=== PATIENT | male | born 1950 | race Caucasian/White ===

== ENCOUNTER 2017-07-11 03:11 | Inpatient (IN) | payer MEDICARE, BC ==
--- NOTE | 2017-07-11 03:23 | ER Document Report ---
ED General - General Stated Complaint: BREATHING DIFFICULTY Notes: Patient is a 67-year-old male who presents with complaint of difficulty breathing. Patient had her procedure earlier today. He said he felt great after procedure and had no comp occasions. Tonight he developed some difficulty breathing and wheezing. He is a former smoker. No history of asthma. Leg pain or leg swelling. He does have Fiore catheter in place with some bloody drainage which is expected. Paramedics arrived to suction saturations were in the 80s. They gave him some Medrol as well as breathing treatment. With the breathing treatment he is feeling much better already. No other complaints at this time. He denies abdominal pain. Had recent URI type symptoms but no fevers. Patient does have history of atrial fibrillation. He is on Eliquis but this is being held because of the recent surgery. He does have a pacemaker, defibrillator as well. He is a diabetic and takes insulin for that. His says his blood sugars are generally well controlled. Accu- Chek by the paramedics was in the 100s. - Related Data Allergies/Adverse Reactions: No Known Allergies Allergy (Unverified 07/11/17 06:00) Home Medications: Current Home Medications Apixaban [Eliquis] 5 mg PO DAILY 07/11/17 [History] Calcium Acetate [Calcium Acetate] 2 tab PO AC 07/11/17 [History] Calcium Carbonate [Calcium] 500 mg PO BID 07/11/17 [History] Insulin Glargine,Hum.rec.anlog [Lantus Insulin 100 Unit/1 ml 10 ml] 10 units SQ DAILY 07/11/17 [History] Insulin Lispro [Humalog Insulin (Lispro) 100 unit/mL] 4 units SQ AC MDD Sliding scale 07/11/17 [History] Sodium Bicarbonate 650 mg PO BID 07/11/17 [History] Sotalol HCl [Sotalol] 80 mg PO BID 07/11/17 [History] Past Medical History - Social History Smoking Status: Former Smoker Frequency of alcohol use: None Drug Abuse: None Family History: Reviewed & Not Pertinent Review of Systems - Review of Systems Notes: My Normal Review Basic REVIEW OF SYSTEMS: CONSTITUTIONAL : Denies fever, chills, or sweats. Denies recent illness. EENT: URI type symptoms recently. CARDIOVASCULAR: Denies chest pain. RESPIRATORY: Wheezing and difficulty breathing. GASTROINTESTINAL: Denies abdominal pain. Denies nausea, vomiting, or diarrhea. Denies constipation. Last BM: GENITOURINARY: Fiore catheter in place. Some hematuria. MUSCULOSKELETAL: Denies neck or back pain or joint pain or swelling. SKIN: Denies rash or skin lesions. NEUROLOGICAL: Denies altered mental status or loss of consciousness. Denies headache. Denies weakness or paralysis or loss of use of either side. Denies problems with gait or speech. Denies sensory or motor loss. ALL OTHER SYSTEMS REVIEWED AND NEGATIVE. Physical Exam - Vital signs Vitals: Temp Pulse Resp BP Pulse Ox 98.1 F 80 32 H 135/72 H 87 L 07/11/17 03:11 07/11/17 03:11 07/11/17 03:11 07/11/17 03:11 07/11/17 03:11 - Notes Notes: General Appearance: Well nourished, alert, cooperative, no acute distress, no obvious discomfort. Well appearing. Vitals: reviewed, See vital signs table. Head: no swelling or tenderness to the head Eyes: PERRL, EOMI, Conjuctiva clear Mouth: No decreasd moisture Throat: No tonsillar inflammation, No airway obstruction, No lymphadenopathy Neck: Supple, no neck tenderness, No thyromegaly Lungs: Mild diffuse wheezing, No rales, No rhonci, No accessory muscle use, good air exchange bilaterally. Heart: Normal rate, Regular rythm, No murmur, no rub Abdomen: Normal BS, soft, No rigidity, No abdominal tenderness, No guarding, no rebound, no abdominal masses, no organomegaly Total: Fiore catheter in place. Some blood-tinged urine being expressed from Fiore catheter. Extremities: strength 5/5 in all extremities, good pulses in all extremities, no swelling or tenderness in the extremities, no edema. Skin: warm, dry, appropriate color, no rash Neuro: speech clear, oriented x 3, normal affect, responds appropriately to questions. Course - Re-evaluation Re-evalutation: 07/11/17 03:43 Patient is now finished receiving the initial breathing treatment was given to him by the paramedics. On 6 L of nasal cannula he is 91%. I will place him on BiPAP for short period time while given further breathing treatments and some magnesium. Currently he does have some diffuse wheezing is now better heard now that the breathing treatment is completed; however, he is in no distress, has no tachypnea, has no retractions, and does not show significant increased work of breathing despite his oxygen saturation only being in the low 90s with supplemental oxygen. 07/11/17 06:46 I did see that the patient's creatinine is elevated. I did go and speak with family and is that his baseline creatinine is actually 4.7. The reason why he had the TURP procedures because they thought he had some post obstructive nephropathy. His predictive maintenance technician is Dr. Kip Thrasher. Patient says this is the best his creatinine has been in long time. The main concern now is that he does have the pneumonia with some hypoxemia. The patient and his said they would prefer to stay here as opposed to be transferred. I do suspect that this is purely pneumonia. He has a high white count. He a lot of wheezing and rhonchorous breath sounds on the right which proved greatly with the breathing treatments. I do not suspect PE as the patient symptoms resolve rate with breathing treatments along with and now he is looking much improved in the chest x-ray findings are very consistent with that of pneumonia. I will speak with our hospitalist about patient being admitted. Patient's primary care doctor is Dr. Rice. 07/11/17 07:37 I did speak with Dr. Basilio who agrees to accept the patient for admission. Dictation of this chart was performed using voice recognition software; therefore, there may be some unintended grammatical errors. 07/11/17 07:40 - Vital Signs Vital signs: Temp Pulse Resp BP Pulse Ox 99 F 80 15 132/87 H 96 07/11/17 07:01 07/11/17 03:11 07/11/17 07:01 07/11/17 07:00 07/11/17 07:01 - Laboratory Result Diagrams: 07/11/17 05:40 07/11/17 05:40 Laboratory results interpreted by me: 07/11/17 07/11/17 07/11/17 04:15 05:40 05:40 WBC 17.0 H RBC 3.55 L Hgb 10.4 L Hct 32.7 L MCHC 31.8 L RDW 15.1 H Seg Neuts % (Manual) 94 H Band Neutrophils % 1 L Lymphocytes % (Manual) 4 L Monocytes % (Manual) 1 L Abs Neuts (Manual) 16.2 H VBG pH 7.22 L VBG HCO3 17.6 L Carbon Dioxide 17 L BUN 49 H Creatinine 3.52 H Est GFR ( Amer) 21 L Est GFR (Non-Af Amer) 17 L Glucose 244 H Calcium 7.7 L Total Protein 5.9 L Discharge - Discharge Clinical Impression: Pneumonia Qualifiers: Pneumonia type: due to unspecified organism Laterality: right Lung location: unspecified part of lung Qualified Code(s): J18.9 - Pneumonia, unspecified organism Condition: Stable Disposition: ADMITTED OBSERVATION Admitting Provider: Hospitalist Unit Admitted: Telemetry
[2017-07-11] MEDS ORDERED: ALBUTEROL SULFATE 0.083% NEB 2.5 MG/3 ML AMPUL NEB ONE (03:35)
--- NOTE | 2017-07-11 03:50 | RADIOLOGY REPORT (SQ) ---
EXAM DESCRIPTION: CHEST SINGLE VIEW CLINICAL HISTORY: 67 years, Male, cough COMPARISON: 06.19.18 LIMITATIONS: None. FINDINGS: Mild interstitial markings with septal markings, mild patchiness of the right lower and mid lung szymanski, normal cardiac silhouette, left cardiac stimulation device and leads, and intact bony thorax. IMPRESSION: Mild mixed airspace and interstitial opacities, right more than left may indicate asymmetric pulmonary edema, pneumonia, and/or chronic interstitial lung disease. 2011 [employer]- All Rights Reserved
[2017-07-11] MEDS: MAGNESIUM SULFATE/D5W 1 GM/100 ML RTUPB IV SCH ×2 (03:51→06:53)
[2017-07-11 04:52] LABS: VENOUS BLOOD BASE EXCESS -9.6 mmol/L; VENOUS BLOOD HCO3 17.6 mmol/L (20-32); VENOUS BLOOD PH 7.22 (7.30-7.42)
[2017-07-11 05:57] LABS: HEMATOCRIT 32.7 % (37.9-51.0); HEMOGLOBIN 10.4 g/dL (13.5-17.0); MEAN CORPUSCULAR HEMOGLOBIN 29.3 pg (27.0-33.4); MEAN CORPUSCULAR HGB CONC 31.8 g/dL (32.0-36.0); MEAN CORPUSCULAR VOLUME 92 fl (80-97); PLATELET COUNT 204 10^3/uL (150-450); RED BLOOD COUNT 3.55 10^6/uL (4.35-5.55); RED CELL DISTRIBUTION WIDTH 15.1 % (11.5-14.0)
[2017-07-11 06:11] LABS: ALANINE AMINOTRANSFERASE 61 U/L (21-72); ALBUMIN 3.6 g/dL (3.5-5.0); ALKALINE PHOSPHATASE 101 U/L (38-126); ANION GAP 16 (5-19); ASPARTATE AMINO TRANSFERASE 50 U/L (17-59); BILIRUBIN,DIRECT 0.3 mg/dL (0.0-0.4); BILIRUBIN,TOTAL 0.4 mg/dL (0.2-1.3); BLOOD UREA NITROGEN 49 mg/dL (7-20); CALCIUM 7.7 mg/dL (8.4-10.2); CARBON DIOXIDE 17 mmol/L (22-30); CHLORIDE 107 mmol/L (98-107); GLUCOSE 244 mg/dL (75-110); POTASSIUM 3.7 mmol/L (3.6-5.0); SODIUM 139.6 mmol/L (137-145); TOTAL PROTEIN 5.9 g/dL (6.3-8.2)
[2017-07-11 06:27] LABS: ABSOLUTE LYMPHOCYTES# (MANUAL) 0.7 10^3/uL (0.5-4.7); ABSOLUTE MONOCYTES # (MANUAL) 0.2 10^3/uL (0.1-1.4); ABSOLUTE NEUTROPHILS# (MANUAL) 16.2 10^3/uL (1.7-8.2); BAND NEUTROPHILS % (MANUAL) 1 % (3-5); BASOPHILS % (MANUAL) 0 % (0-2); EOSINOPHILS % (MANUAL) 0 % (0-6); LYMPHOCYTES % (MANUAL) 4 % (13-45); MONOCYTES % (MANUAL) 1 % (3-13); SEGMENTED NEUTROPHILS % (MAN) 94 % (42-78); TOTAL CELLS COUNTED 100
[2017-07-11] MEDS ORDERED: LEVOFLOXACIN 750 MG/D5W RTU 750 MG/150 ML RTUPB IV ONE (06:27)
[2017-07-11 06:29] LABS: ANISOCYTOSIS SLIGHT; OVALOCYTES SLIGHT; PLATELET COMMENT ADEQUATE; POIKILOCYTOSIS SLIGHT; STOMATOCYTES SLIGHT
[2017-07-11 06:30] LABS: TOXIC GRANULATION SLIGHT; TOXIC VACUOLATION PRESENT
[2017-07-11] MEDS ORDERED: IPRATROPIUM/ALBUTEROL 0.5-2.5 MG/3 ML AMPUL NEB PRN (07:41)
[2017-07-11] MEDS ORDERED: ONDANSETRON HCL INJ/PF 4 MG/2 ML SDV IV PRN (07:41)
[2017-07-11] MEDS ORDERED: ONDANSETRON 4 MG TAB.RAPDIS PO PRN (07:41)
[2017-07-11] MEDS ORDERED: LANSOPRAZOLE 15 MG TAB.RAP.DR PO ONE (08:30)
[2017-07-11] MEDS ORDERED: ENOXAPARIN SODIUM INJ 40 MG/0.4 ML DISP.SYRIN SUBCUT SCH (10:00)
[2017-07-11] MEDS ORDERED: ENOXAPARIN SODIUM INJ 30 MG/0.3 ML DISP.SYRIN SUBCUT SCH (10:00)
[2017-07-11] MEDS: DOCUSATE SODIUM 100 MG CAPSULE PO SCH (10:14)
[2017-07-11] MEDS ORDERED: DEXTROSE 50%-WATER 25 GM/50 ML DISP.SYRIN IV PRN ×2 (11:11)
[2017-07-11] MEDS ORDERED: INSULIN LISPRO 100 UNIT/ML 3 ML VIAL SUBCUT PRN (11:11)
[2017-07-11] MEDS ORDERED: GLUCAGON,HUMAN RECOMB 1 MG INJ IM PRN (11:11)
[2017-07-11] MEDS ORDERED: DEXTROSE 40% GEL 15 GM TUBE PO PRN ×2 (11:11)
[2017-07-11] MEDS ORDERED: FUROSEMIDE INJ/PF 20 MG/2 ML SDV IV ONE (12:00)
[2017-07-11] MEDS ORDERED: DOXYCYCLINE HYCLATE 100 MG TABLET PO ONE (12:00)
[2017-07-11] MEDS ORDERED: INSULIN GLARGINE,HUM.REC.ANLOG 1,000 UNIT/10 ML UNIT SUBCUT SCH (12:00)
[2017-07-11] MEDS ORDERED: FUROSEMIDE INJ/PF 40 MG/4 ML SDV IV ONE (13:00)
--- NOTE | 2017-07-11 15:51 | XCELERA REPORT ---
[address] [address] Transthoracic Echocardiogram Report Name: KARINA SHIELDS Age: 67 yrs Gender: Male : 1950 Patient Status: Inpatient Patient Location: [place] [address]^A Study Date: 07/11/2017 12:49 PM Height: 75 in Weight: 191 lb BSA: 2.2 m2 Procedure: A two-dimensional transthoracic echocardiogram with color flow and Doppler was performed. Study Quality: Fair. Reason For Study: Cardiomyopathy LV EF History: Cardiomyopathy LV EF. Ordering Physician: SONIA PACHECO Performed By: Yolanda Collier Interpretation Summary The left ventricle is moderately to severly dilated. There is borderline asymmetric left ventricular hypertrophy. No LVOT obstruction and no 'JOELLEN' of the anterior Mitral Valve Leaflet.Hence no IHSS (No HOCM.). LV EF is 30 % to 35% Left ventricular systolic function is severely reduced. Doppler measurements suggest impaired left ventricular relaxation, which is associated with grade I/IV or mild diastolic dysfunction The left atrium is mildly dilated. There is no evidence of mitral valve prolapse. There is no vegetation seen on the mitral valve. There is no mitral valve stenosis. There is a trace amount of mitral regurgitation There is no aortic valve stenosis There is no LVOT obstruction. No aortic regurgitation is present. There is no tricuspid stenosis. There is a trace amount of tricuspid regurgitation Right ventricular systolic pressure is normal. RVSP is normal at 28 mm of Hg , with RA mean of 10. There is no pericardial effusion. MMode/2D Measurements & Calculations RVDd: 2.7 cm LVIDd: 6.0 cm FS: 17.5 % Ao root diam: IVSd: 1.2 cm LVIDs: 5.0 cm EDV(Teich): 3.3 cm LVPWd: 1.1 cm 183.3 ml Ao root area: ESV(Teich): 117.5 ml 8.7 cm2 EF(Teich): LA dimension: 35.9 % 3.9 cm LVLd ap4: 10.5 cm SV(MOD-sp4): 70.0 ml LA A2Cs: LA A4Cs: 29.6 cm2 EDV(MOD-sp4): 29.5 cm2 223.0 ml LVLs ap4: 9.3 cm ESV(MOD-sp4): 153.0 ml EF(MOD-sp4): 31.4 % LA length: 6.9 cm LA Vol Index (BP): LA Volume: 50.0 ml/m2 107.6 ml Doppler Measurements & Calculations MV E max angelo: MV P1/2t max angelo: Ao V2 max: LV V1 max P.3 cm/sec 54.3 cm/sec 117.3 cm/sec 1.4 mmHg MV A max angelo: MV P1/2t: 48.3 msec Ao max PG: LV V1 max: 76.0 cm/sec 5.5 mmHg 58.2 cm/sec MV E/A: 0.73 MVA(P1/2t): 4.6 cm2 MV dec slope: 329.1 cm/sec2 PA V2 max: TR max angelo: 104.6 cm/sec 211.5 cm/sec PA max PG: TR max P.9 mmHg 4.4 mmHg Left Ventricle The left ventricle is moderately to severly dilated. There is borderline asymmetric left ventricular hypertrophy. No LVOT obstruction and no 'JOELLEN' of the anterior Mitral Valve Leaflet.Hence no IHSS (No HOCM.). LV EF is 30 % to 35%. Left ventricular systolic function is severely reduced. Doppler measurements suggest impaired left ventricular relaxation, which is associated with grade I/IV or mild diastolic dysfunction. There is severe global hypokinesis of the left ventricle. Right Ventricle The right ventricle is normal in size and function. There is a pacemaker lead in the right ventricle. Atria The right atrium is normal. The left atrium is mildly dilated. Mitral Valve There is no evidence of mitral valve prolapse. There is no vegetation seen on the mitral valve. There is no mitral valve stenosis. There is a trace amount of mitral regurgitation. Aortic Valve There is no aortic valvular vegetation. There is no aortic valve stenosis. There is no LVOT obstruction. No aortic regurgitation is present. Tricuspid Valve There is no tricuspid stenosis. There is a trace amount of tricuspid regurgitation. Right ventricular systolic pressure is normal. RVSP is normal at 28 mm of Hg , with RA mean of 10. Pulmonic Valve There is no pulmonic valvular stenosis. There is no pulmonic valvular regurgitation. Great Vessels The aortic root is normal size. Effusions There is no pericardial effusion. : JUNIOR, NOVEMBER > Sharla Nichols
[2017-07-11] MEDS: IPRATROPIUM/ALBUTEROL 0.5-2.5 MG/3 ML AMPUL NEB SCH ×2 (16:36→20:13)
--- NOTE | 2017-07-11 17:18 | PDOC H&P ---
History of Present Illness Admission Date/PCP: 07/11/17 09:40 Dr. Es Rice [facility] Marketing Senior Recruiter: Dr. Laura Lynn Urologist: Doctor Constantino Christopher in [facility] Weapons Specialist: Dr.Vernon Thrasher History of Present Illness: KARINA SHIELDS is a 67 year old male with past medical history of Atrial fibrillation on Sotalol and Eliquis Chronic kidney disease Postobstructive nephropathy Insulin-dependent diabetes Cardiomyopathy with left ventricular ejection fraction of 35% on last echocardiogram from 2011 AICD Patient medications: Sotalol 80 mg twice a day Eliquis 5 mg twice a day on hold for the next 3 days due to TURP done on very fourth at [facility] Sodium bicarbonate 650 mg twice a day Calcium acetate 667 mg 2 caps 3 times a day with meals Calcium and vitamin D twice a day Lantus 10 units daily in the morning Insulin sliding scale 1 unit for every 15 g of carbs Humalog COPD Prior tobacco use. The patient presented with a two-week history of progressively worsening orthopnea and dry cough with yellowish phlegm. He also had some rhinorrhea and sore throat. He denies any fevers or chills. No nausea or vomiting no diarrhea no abdominal pain. No chest pain or palpitations. He underwent TURP at [facility] and still has a Fiore in place. Eliquis is on hold. He became acutely more short of breath yesterday and presented to the emergency room and is found to have acute hypoxic respiratory failure and was treated with BiPAP magnesium and nebs. X-ray showed a right basal infiltrate and he was started on antibiotics. Past Medical History Cardiac Medical History: Reports: Atrial Fibrillation Endocrine Medical History: Reports: Diabetes Mellitus Type 2 Musculoskeltal Medical History: Reports: Arthritis Past Surgical History Past Surgical History: Comment Only: Vascular Surgery - TURP 07/10/17 Social History Smoking Status: Former Smoker Drugs: None - Advance Directive Resuscitation Status: Full Code Family History Family History: Reviewed & Not Pertinent Parental Family History Reviewed: Yes Children Family History Reviewed: Yes Sibling(s) Family History Reviewed.: Yes Medication/Allergy Home Medications: Apixaban [Eliquis 5 mg Tablet] 5 mg PO Q12 07/11/17 Calcium Acetate [Phoslo 667 mg Capsule] 667 mg PO MEALS 07/11/17 Finasteride [Proscar 5 mg Tablet] 5 mg PO DAILY 07/11/17 Insulin Glargine,Hum.rec.anlog [Lantus Solostar] 10 units SQ DAILY 07/11/17 Insulin Lispro [Humalog Insulin (Lispro) 100 unit/mL] 0 units SQ .SLIDING SCALE 07/11/17 Sodium Bicarbonate [Sodium Bicarbonate 650 mg Tablet] 650 mg PO BID 07/11/17 Allergies/Adverse Reactions: No Known Allergies Allergy (Unverified 07/11/17 06:00) Review of Systems All systems: reviewed and no additional remarkable complaints except as stated Constitutional: ABSENT: anorexia, chills, fever(s), headache(s) Ears: ABSENT: hearing changes Nose, Mouth, and Throat: ABSENT: mouth pain Cardiovascular: PRESENT: dyspnea on exertion, orthropnea. ABSENT: chest pain, edema Gastrointestinal: ABSENT: abdominal pain, diarrhea, heartburn Integumentary: ABSENT: rash Neurological: ABSENT: focal weakness Psychiatric: ABSENT: anxiety Endocrine: ABSENT: heat intolerance Physical Exam Vital Signs: Temp Pulse Resp BP Pulse Ox 99 F 80 15 125/85 100 07/11/17 07:01 07/11/17 03:11 07/11/17 13:01 07/11/17 13:00 07/11/17 13:01 Intake & Output 07/10/17 07/11/17 07/12/17 06:59 06:59 06:59 Output Total 950 Balance -950 Additional comments: Lace gentleman sitting in bed not in acute distress Lungs: Normal respiratory effort positive crackles in the right base no wheezing heard Cardiac: S1-S2 regular no peripheral edema no cyanosis no calf tenderness no thrills palpable no murmurs heard Abdomen: Soft, no focal tenderness normal bowel sounds Skin: Warm and dry Fiore present draining blood-tinged urine Neurologic: Awake and alert oriented 3 no focal neurologic deficits speech is clear and fluent. Results Impressions: Chest X-Ray 07/11/17 03:19 IMPRESSION: Mild mixed airspace and interstitial opacities, right more than left may indicate asymmetric pulmonary edema, pneumonia, and/or chronic interstitial lung disease. 2010 [employer]- All Rights Reserved Status: Image reviewed by me Assessment & Plan - Diagnosis (1) Right lower lobe pneumonia Is this a current diagnosis for this admission?: Yes (2) Atrial fibrillation Is this a current diagnosis for this admission?: Yes (3) Anticoagulant long-term use Is this a current diagnosis for this admission?: No (4) AICD (automatic cardioverter/defibrillator) present Is this a current diagnosis for this admission?: Yes (5) COPD exacerbation Is this a current diagnosis for this admission?: Yes (6) CKD (chronic kidney disease) stage 3, GFR 30-59 ml/min Is this a current diagnosis for this admission?: Yes (7) Diabetes 1.5, managed as type 2 Is this a current diagnosis for this admission?: Yes (8) Acute systolic (congestive) heart failure Is this a current diagnosis for this admission?: Yes - Time Time Spent: 50 to 70 Minutes - Plan Summary Plan Summary: Nebs, Oxygen antibiotics, Lasix, monitor Input and output. Continue Sotalol, Eliquis on hold due to recent TURP. Patient insists that he will check his own blood sugars and absolutely take all his own home medications. This is ok with me.
[2017-07-11] MEDS ORDERED: (PENDING PHARMACY ID) (Calcium Carbonate [Calcium] 500 MG) PO SCH (18:00)
[2017-07-11] MEDS ORDERED: FUROSEMIDE 40 MG TABLET PO SCH (18:00)
[2017-07-11] MEDS: SODIUM BICARBONATE 650 MG TABLET PO SCH (20:10)
[2017-07-11] MEDS: CALCIUM ACETATE 667 MG CAPSULE PO SCH (20:10)
[2017-07-11] MEDS: SOTALOL HCL 80 MG TABLET PO SCH (20:10)
[2017-07-11] MEDS: CALCIUM CARBONATE 500 MG TABLET PO SCH (20:10)
[2017-07-11] MEDS: DOXYCYCLINE HYCLATE 100 MG TABLET PO SCH (21:38)
[2017-07-12] MEDS: IPRATROPIUM/ALBUTEROL 0.5-2.5 MG/3 ML AMPUL NEB SCH ×6 (00:07→20:24)
[2017-07-12] MEDS: LANSOPRAZOLE 15 MG TAB.RAP.DR PO SCH (05:41)
[2017-07-12] MEDS: SOTALOL HCL 80 MG TABLET PO SCH ×2 (05:43→17:10)
[2017-07-12 07:41] LABS: ANION GAP 12 (5-19); BLOOD UREA NITROGEN 66 mg/dL (7-20); CALCIUM 8.2 mg/dL (8.4-10.2); CARBON DIOXIDE 21 mmol/L (22-30); CHLORIDE 105 mmol/L (98-107); GLUCOSE 219 mg/dL (75-110); MAGNESIUM 1.9 mg/dL (1.6-2.3); PHOSPHORUS 5.2 mg/dL (2.5-4.5); POTASSIUM 3.9 mmol/L (3.6-5.0); SODIUM 138.1 mmol/L (137-145)
[2017-07-12] MEDS: CALCIUM CARBONATE 500 MG TABLET PO SCH ×2 (10:25→17:10)
[2017-07-12] MEDS: DOCUSATE SODIUM 100 MG CAPSULE PO SCH (10:25)
[2017-07-12] MEDS: LACTOBACILLUS ACIDOPHILUS 250 MG TAB PO SCH ×2 (10:25→17:10)
[2017-07-12] MEDS: CALCIUM ACETATE 667 MG CAPSULE PO SCH ×3 (10:25→17:10)
[2017-07-12] MEDS: SODIUM BICARBONATE 650 MG TABLET PO SCH ×2 (10:25→17:10)
[2017-07-12] MEDS: DOXYCYCLINE HYCLATE 100 MG TABLET PO SCH ×2 (10:32→21:51)
--- NOTE | 2017-07-12 11:33 | EKG REPORT ---
SEVERITY:- ABNORMAL ECG - ATRIAL-PACED COMPLEXES LEFT BUNDLE BRANCH BLOCK : Confirmed by: Linnette Hinkle 12-Jul-2017 11:32:40
[2017-07-12] MEDS: INSULIN GLARGINE,HUM.REC.ANLOG 1,000 UNIT/10 ML UNIT SUBCUT SCH (12:08)
--- NOTE | 2017-07-12 15:54 | PDOC PROGRESS REPORT ---
Subjective Progress Note for:: 07/12/17 Subjective:: Feels better today. Reason For Visit: PNEUMONIA HYPOXIA Physical Exam Vital Signs: Temp Pulse Resp BP Pulse Ox 97.9 F 74 16 132/82 H 98 07/12/17 04:29 07/12/17 13:35 07/12/17 13:35 07/12/17 04:29 07/12/17 09:01 Additional comments: Middle aged gentleman sitting in bed not in acute distress Lungs: Normal respiratory effort, b/l basal crackles, no wheezing heard Cardiac: S1-S2 regular no peripheral edema no cyanosis no calf tenderness no thrills palpable no murmurs heard Abdomen: Soft, no focal tenderness normal bowel sounds Skin: Warm and dry Fiore present draining blood-tinged urine Results Impressions: Chest X-Ray 07/11/17 03:19 IMPRESSION: Mild mixed airspace and interstitial opacities, right more than left may indicate asymmetric pulmonary edema, pneumonia, and/or chronic interstitial lung disease. 2010 [employer]- All Rights Reserved Assessment & Plan - Diagnosis (1) Right lower lobe pneumonia Is this a current diagnosis for this admission?: Yes (2) Atrial fibrillation Is this a current diagnosis for this admission?: Yes (3) Anticoagulant long-term use Is this a current diagnosis for this admission?: No (4) AICD (automatic cardioverter/defibrillator) present Is this a current diagnosis for this admission?: Yes (5) COPD exacerbation Is this a current diagnosis for this admission?: Yes (6) CKD (chronic kidney disease) stage 3, GFR 30-59 ml/min Is this a current diagnosis for this admission?: Yes (7) Diabetes 1.5, managed as type 2 Is this a current diagnosis for this admission?: Yes (8) Acute systolic (congestive) heart failure Is this a current diagnosis for this admission?: Yes - Time Time Spent with patient: 25-34 minutes - Inpatient Certification Medical Necessity: Need Close Monitoring Due to Risk of Patient Decompensation, Need for Nebulizer Therapy and Monitoring of Response - Plan Summary Plan Summary: Continue IV LasixNebs, Oxygen antibiotics, monitor Input and output for Pneumonia R lower lobe and acute systolic CHF exacerbation. Continue Sotalol for Afib Eliquis on hold due to recent TURP.
[2017-07-13] MEDS: IPRATROPIUM/ALBUTEROL 0.5-2.5 MG/3 ML AMPUL NEB SCH ×7 (00:40→23:41)
[2017-07-13] MEDS: SOTALOL HCL 80 MG TABLET PO SCH ×2 (05:35→17:50)
[2017-07-13] MEDS: LANSOPRAZOLE 15 MG TAB.RAP.DR PO SCH (05:35)
[2017-07-13 09:48] LABS: ANION GAP 13 (5-19); BLOOD UREA NITROGEN 68 mg/dL (7-20); CALCIUM 8.1 mg/dL (8.4-10.2); CARBON DIOXIDE 23 mmol/L (22-30); CHLORIDE 104 mmol/L (98-107); GLUCOSE 302 mg/dL (75-110); MAGNESIUM 1.7 mg/dL (1.6-2.3); POTASSIUM 3.7 mmol/L (3.6-5.0); SODIUM 140.3 mmol/L (137-145)
[2017-07-13] MEDS: DOCUSATE SODIUM 100 MG CAPSULE PO SCH (10:32)
[2017-07-13] MEDS: INSULIN GLARGINE,HUM.REC.ANLOG 1,000 UNIT/10 ML UNIT SUBCUT SCH (10:32)
[2017-07-13] MEDS: CALCIUM ACETATE 667 MG CAPSULE PO SCH ×3 (10:32→17:50)
[2017-07-13] MEDS: SODIUM BICARBONATE 650 MG TABLET PO SCH ×2 (10:32→17:50)
[2017-07-13] MEDS: DOXYCYCLINE HYCLATE 100 MG TABLET PO SCH ×2 (10:32→21:19)
[2017-07-13] MEDS: CALCIUM CARBONATE 500 MG TABLET PO SCH ×2 (10:32→17:50)
[2017-07-13] MEDS: LACTOBACILLUS ACIDOPHILUS 250 MG TAB PO SCH ×2 (10:33→17:50)
--- NOTE | 2017-07-13 20:28 | PROGRESS NOTE E ---
Progress Note NAME: KARINA SHIELDS : 1950 AGE: 67Y DATE: 07/13/2017 ROOM: 416 SUBJECTIVE: The patient is a 67-year-old male with a history of atrial fibrillation. Anticoagulation is on hold because he had TURP procedure done a few days ago. He came in with shortness of breath and acute hypoxic respiratory failure and was diagnosed with right lower lobe pneumonia. He is feeling somewhat better. OBJECTIVE: VITAL SIGNS: Stable. LUNGS: He has right sided crackles. No wheezing heard. Normal respiratory effort. CARDIAC: S1, S2 regular. No murmurs heard. No peripheral edema. No cyanosis. ABDOMEN: Soft. No focal tenderness. Normal bowel sounds. SKIN: Warm and dry. PLAN: 1. Continue antibiotics, neb treatments, supplemental oxygen. 2. Continue outpatient medications for atrial fibrillation, including Sotalol. 3. Continue NovoLog and Lantus for diabetes. TIME SPENT: Twenty-five minutes. DICTATING PHYSICIAN: SONIA PACHECO M.D. [id number] PHY#: [id number] ID: [id number] JOB#: [id number] ACCT: [id number] cc: >
[2017-07-14] MEDS: IPRATROPIUM/ALBUTEROL 0.5-2.5 MG/3 ML AMPUL NEB SCH ×3 (04:08→11:30)
[2017-07-14] MEDS: LANSOPRAZOLE 15 MG TAB.RAP.DR PO SCH (06:02)
[2017-07-14] MEDS: SOTALOL HCL 80 MG TABLET PO SCH (06:03)
[2017-07-14 08:54] LABS: ANION GAP 11 (5-19); BLOOD UREA NITROGEN 66 mg/dL (7-20); CALCIUM 7.6 mg/dL (8.4-10.2); CARBON DIOXIDE 24 mmol/L (22-30); CHLORIDE 104 mmol/L (98-107); GLUCOSE 221 mg/dL (75-110); MAGNESIUM 1.6 mg/dL (1.6-2.3); POTASSIUM 3.6 mmol/L (3.6-5.0); SODIUM 138.7 mmol/L (137-145)
[2017-07-14] MEDS: LACTOBACILLUS ACIDOPHILUS 250 MG TAB PO SCH (09:16)
[2017-07-14] MEDS: DOXYCYCLINE HYCLATE 100 MG TABLET PO SCH (09:16)
[2017-07-14] MEDS: CALCIUM ACETATE 667 MG CAPSULE PO SCH ×2 (09:21→10:17)
[2017-07-14] MEDS: SODIUM BICARBONATE 650 MG TABLET PO SCH (09:21)
[2017-07-14] MEDS: CALCIUM CARBONATE 500 MG TABLET PO SCH (09:21)
[2017-07-14] MEDS: DOCUSATE SODIUM 100 MG CAPSULE PO SCH (09:21)
[2017-07-14] MEDS: INSULIN GLARGINE,HUM.REC.ANLOG 1,000 UNIT/10 ML UNIT SUBCUT SCH (12:16)
[2017-07-14] MEDS: MAGNESIUM SULFATE/D5W 1 GM/100 ML RTUPB IV SCH ×2 (12:16→13:10)
[2017-07-14 15:08] VITALS: BP 135/75
--- NOTE | 2017-07-14 16:22 | PDOC DISCHARGE SUMMARY ---
General - Admit/Disc Date/PCP Admission Date/Primary Care Provider: 07/12/17 14:37 Discharge Date: 07/14/17 - Discharge Diagnosis (1) Right lower lobe pneumonia Is this a current diagnosis for this admission?: Yes (2) Atrial fibrillation Is this a current diagnosis for this admission?: Yes (3) Anticoagulant long-term use Is this a current diagnosis for this admission?: No (4) AICD (automatic cardioverter/defibrillator) present Is this a current diagnosis for this admission?: Yes (5) COPD exacerbation Is this a current diagnosis for this admission?: Yes (6) CKD (chronic kidney disease) stage 3, GFR 30-59 ml/min Is this a current diagnosis for this admission?: Yes (7) Diabetes 1.5, managed as type 2 Is this a current diagnosis for this admission?: Yes (8) Acute systolic (congestive) heart failure Is this a current diagnosis for this admission?: Yes - Additional Information Resuscitation Status: Full Code Discharge Diet: Diabetic Discharge Activity: Activity As Tolerated Prescriptions: Doxycycline Hyclate [Vibramycin 100 mg Tablet] 100 mg PO Q12 5 Days #11 tablet Home Medications: Calcium Acetate [Phoslo 667 mg Capsule] 667 mg PO MEALS 07/11/17 Finasteride [Proscar 5 mg Tablet] 5 mg PO DAILY 07/11/17 Insulin Glargine,Hum.rec.anlog [Lantus Solostar] 10 units SQ DAILY 07/11/17 Insulin Lispro [Humalog Insulin (Lispro) 100 unit/mL] 0 units SQ .SLIDING SCALE 07/11/17 Sodium Bicarbonate [Sodium Bicarbonate 650 mg Tablet] 650 mg PO BID 07/11/17 Calcium Acetate [Phoslo 667 mg Capsule] 667 mg PO AC capsule 07/14/17 Calcium Carbonate [Os-Raghav 500 mg Tablet (Oyster-Shell)] 500 mg PO BID tablet Doxycycline Hyclate [Vibramycin 100 mg Tablet] 100 mg PO Q12 5 Days #11 tablet 07/14/17 Insulin Glargine,Hum.rec.anlog [Lantus Insulin 100 Unit/1 ml 10 ml] 10 unit SUBCUT DAILY@1200 unit 07/14/17 Sodium Bicarbonate [Sodium Bicarbonate 650 mg Tablet] 650 mg PO BID tablet 02/21 Sotalol HCl [Betapace 80 mg Tablet] 80 mg PO Q12A tablet 07/14/17 History of Present Illness History of Present Illness: KARINA SHIELDS is a 67 year old male with past medical history of Atrial fibrillation on Sotalol and Eliquis Chronic kidney disease Postobstructive nephropathy Insulin-dependent diabetes Cardiomyopathy with left ventricular ejection fraction of 35% on last echocardiogram from 2011 AICD Patient medications: Sotalol 80 mg twice a day Eliquis 5 mg twice a day on hold for the next 3 days due to TURP done on very fourth at [facility] Sodium bicarbonate 650 mg twice a day Calcium acetate 667 mg 2 caps 3 times a day with meals Calcium and vitamin D twice a day Lantus 10 units daily in the morning Insulin sliding scale 1 unit for every 15 g of carbs Humalog COPD Prior tobacco use. The patient presented with a two-week history of progressively worsening orthopnea and dry cough with yellowish phlegm. He also had some rhinorrhea and sore throat. He denies any fevers or chills. No nausea or vomiting no diarrhea no abdominal pain. No chest pain or palpitations. He underwent TURP at [facility] and still has a Fiore in place. Eliquis is on hold. He became acutely more short of breath yesterday and presented to the emergency room and is found to have acute hypoxic respiratory failure and was treated with BiPAP magnesium and nebs. X-ray showed a right basal infiltrate and he was started on antibiotics. He progressively improved and was weaned off oxygen. He ambulated in the hallways on RA and was satting in the high 90s. The patient is stable and ok for discharge home today. He is to follow up with his Boxing Instructor, PCP and Urologist in 1 week. Hospital Course Hospital Course: see above Physical Exam Vital Signs: Temp Pulse Resp BP Pulse Ox 97.8 F 70 16 135/75 H 100 07/14/17 15:05 07/14/17 15:05 07/14/17 15:05 07/14/17 15:05 07/14/17 15:05 Intake & Output 07/13/17 07/14/17 07/15/17 06:59 06:59 06:59 Intake Total 1344 720 Output Total 7673 3150 1700 Balance -2500 -1806 -980 Weight 78.6 kg 78 kg Throat exam: ABSENT: post pharyngeal erythema, tonsillar exudate Respiratory exam: PRESENT: other - trace bibasilar crackles. ABSENT: accessory muscle use Cardiovascular exam: PRESENT: RRR Results Laboratory Results: 07/13/17 19:00 07/13/17 07/13/17 19:00 19:00 Sodium 138.7 Potassium 3.6 Chloride 104 Carbon Dioxide 24 Anion Gap 11 BUN 66 H Creatinine 3.92 H Est GFR ( Amer) 19 L Est GFR (Non-Af Amer) 15 L Glucose 221 H Calcium 7.6 L Phosphorus 5.0 H Magnesium 1.6 TSH 1.68 07/13/17 08:58 NT-Pro-B Natriuret Pep 73618 H Impressions: Chest X-Ray 07/11/17 03:19 IMPRESSION: Mild mixed airspace and interstitial opacities, right more than left may indicate asymmetric pulmonary edema, pneumonia, and/or chronic interstitial lung disease. 2010 [employer]- All Rights Reserved Status: Image reviewed by me Qualifiers PATEINT BEING DISCHARGED WITH ANY OF THE FOLLOWING DIAGNOSIS?: No Plan Time Spent: Greater than 30 Minutes - Discharge home
== END 2017-07-14 15:53 | disposition home or self-care (01) | DRG 193 ==
LOC: ER 03:11 → EH 09:40 → 4W 14:42 → OBSVTOIN 07-12 14:37
PROVIDERS: ADMIT Internal Medicine; ATTEND Internal Medicine
DX: J18.9 Pneumonia, unspecified organism (principal); J96.01 Acute respiratory failure with hypoxia; I50.21 Acute systolic (congestive) heart failure; I42.9 Cardiomyopathy, unspecified; J44.0 Chronic obstructive pulmonary disease with (acute) lower respiratory infection; J44.1 Chronic obstructive pulmonary disease with (acute) exacerbation; I48.2 Chronic atrial fibrillation; N18.3 Chronic kidney disease, stage 3 (moderate); E11.22 Type 2 diabetes mellitus with diabetic chronic kidney disease; Z95.810 Presence of automatic (implantable) cardiac defibrillator; Z87.891 Personal history of nicotine dependence; Z79.01 Long term (current) use of anticoagulants; Z79.4 Long term (current) use of insulin; Z79.899 Other long term (current) drug therapy
CPT/HCPCS: 36415; 71045; 80048; 80053; 82803; 82962; 83036; 83735; 83880; 84100; 84443; 85025; 87040; 93005; 93010; 93306; 94640; 94660; 96365; 96367; 96372; 96375; 99285; G0378; J1650; J1815; J1940; J1956; J3475; J3490; J7620

== ENCOUNTER 2018-01-21 04:01 | Inpatient (IN) | payer MEDICARE, BC ==
--- NOTE | 2018-01-21 04:12 | ER Document Report ---
ED General - General Stated Complaint: HEART PROBLEMS Time Seen by Provider: 01/21/18 04:10 Notes: Patient is a 67-year-old male presents with complaint of difficulty breathing that started at 2:30 AM. He said yesterday during the day he felt completely fine he woke up around 2:30 am feeling very short of breath. Patient has a history of congestive heart failure. He does have pacemaker. He is a former smoker but has not smoked in several years. Paramedics arrived his O2 sats were in the low 80s. He denies ever having any chest pain or chest pressure. Paramedics gave him a dose of Vasotec as he was hypertensive. The placement CPAP. He says he feels much improved after being placed on the CPAP. Paramedics said on initial examination had a lot of rales throughout his lung szymanski. Of note the paramedics on the monitor his heart rate would go from the 60s and 70s down to the 30s and go right back up. He does have a pacemaker. Whenever his heart rate would drop on the monitor he still had a palpable pulse that was in the 50s and 60s; therfore, the monitor likely was just not capturing his rhythm appropriately. His mental health director is Dr. Laura Lynn in [place]. TRAVEL OUTSIDE OF THE [place] IN LAST 30 DAYS: No - Related Data Allergies/Adverse Reactions: No Known Allergies Allergy (Unverified 07/11/17 06:00) Past Medical History - Social History Smoking Status: Former Smoker Frequency of alcohol use: None Drug Abuse: None Family History: Reviewed & Not Pertinent - Past Medical History Cardiac Medical History: Reports: Hx Atrial Fibrillation Endocrine Medical History: Reports: Hx Diabetes Mellitus Type 2 Renal/ Medical History: Reports: Hx Benign Prostatic Hyperplasia - TURP . Denies: Hx Peritoneal Dialysis Musculoskeletal Medical History: Reports Hx Arthritis Past Surgical History: Comment Only: Hx Vascular Surgery - TURP 07/10/17 Review of Systems - Review of Systems Notes: My Normal Review Basic REVIEW OF SYSTEMS: CONSTITUTIONAL : Denies fever, chills, or sweats. Denies recent illness. EENT: Denies eye, ear, throat, or mouth pain or symptoms. Denies nasal or sinus congestion. CARDIOVASCULAR: Denies chest pain. RESPIRATORY: Difficulty breathing. GASTROINTESTINAL: Denies abdominal pain. Denies nausea, vomiting, or diarrhea. GENITOURINARY: Denies difficulty urinating, painful urination, burning, frequency, or blood in urine. MUSCULOSKELETAL: Denies neck or back pain or joint pain or swelling. SKIN: Denies rash or skin lesions. NEUROLOGICAL: Denies altered mental status or loss of consciousness. Denies headache. Denies weakness or paralysis or loss of use of either side. Denies problems with gait or speech. Denies sensory or motor loss. ALL OTHER SYSTEMS REVIEWED AND NEGATIVE. Physical Exam - Vital signs Vitals: Resp BP Pulse Ox 23 H 159/100 H 96 01/21/18 04:04 01/21/18 04:04 01/21/18 04:04 - Notes Notes: General Appearance: Well nourished, alert, cooperative, mild acute distress, no obvious discomfort. Vitals: reviewed, See vital signs table. Head: no swelling or tenderness to the head Eyes: PERRL, EOMI, Conjuctiva clear Mouth: No decreasd moisture Lungs: No wheezing, scattered basilar rales, No rhonci, mild accessory muscle use, good air exchange bilaterally. Heart: Normal rate, Regular rythm, No murmur, no rub Abdomen: Normal BS, soft, No rigidity, No abdominal tenderness, No guarding, no rebound, no abdominal masses, no organomegaly Extremities: strength 5/5 in all extremities, good pulses in all extremities, no swelling or tenderness in the extremities, no edema. Skin: warm, dry, appropriate color, no rash Neuro: speech clear, oriented x 3, normal affect, responds appropriately to questions. Course - Re-evaluation Re-evalutation: 01/21/18 05:05 Patient's breathing has improved significantly. The patient looks very well. The patient does not have any difficulty breathing at this time as long as he is on the BiPAP. Chest x-ray does show some mild pulmonary vascular congestion. Likely the CPAP that was used by the paramedics and the nitro given to resolve most of her flash pulmonary edema. History is consistent with flash pulmonary edema and that is done suddenly, he was hypertensive, he had rales in his lung szymanski, and his symptoms improved with nitro and CPAP. He currently does not have chest pain. He denies having any chest pain throughout the night tonight. Patient does have chronic renal insufficiency and his serum creatinine is usually around 4. Tonight is 4.99. I therefore been given Lasix at the patient's pulmonary edema seems to have improved and I do not want to worsen his renal function. I spoke with the hospitalist, Dr. Castñaeda, took down the patient's information. She said that she may or may not be able to admit the patient tonight but she will pass on the information to morning team if the patient was not able to be admitted by her tonight. Dictation of this chart was performed using voice recognition software; therefore, there may be some unintended grammatical errors. - Vital Signs Vital signs: Temp Pulse Resp BP Pulse Ox 28 H 126/82 H 98 01/21/18 04:48 01/21/18 04:41 01/21/18 04:48 - Laboratory Result Diagrams: 01/21/18 04:00 01/21/18 04:00 Laboratory results interpreted by me: 01/21/18 01/21/18 01/21/18 04:00 04:00 04:00 WBC 12.3 H RBC 3.82 L Hgb 11.3 L Hct 34.9 L RDW 17.8 H Absolute Neutrophils 8.7 H Sodium 149.2 H Chloride 116 H Carbon Dioxide 18 L BUN 66 H Creatinine 4.99 H Est GFR ( Amer) 14 L Est GFR (Non-Af Amer) 12 L Glucose 148 H Calcium 7.8 L NT-Pro-B Natriuret Pep [id number] H - EKG Interpretation by Me Additional EKG results interpreted by me: 01/21/18 04:11 EKG is reviewed and interpreted by me. EKG shows sinus rhythm with a rate of 72 bpm. He has occasional PVCs. Rhythm is paced. CO interval is within normal range. QRS duration is prolonged. QTc interval is normal. She has some minimal ST segment depression in leads V5 and V6 which is unchanged comparison to his previous EKG from July 12, 2017. 01/21/18 04:12 Discharge - Discharge Clinical Impression: Flash pulmonary edema Chronic renal failure Qualifiers: Chronic kidney disease stage: unspecified stage Qualified Code(s): N18.9 - Chronic kidney disease, unspecified Condition: Stable Admitting Provider: Hospitalist Unit Admitted: [facility]
[2018-01-21 04:30] LABS: ABSOLUTE BASOPHILS # (AUTO) 0.2 10^3/uL (0.0-0.2); ABSOLUTE EOSINOPHILS # (AUTO) 0.4 10^3/uL (0.0-0.6); ABSOLUTE LYMPHOCYTES (AUTO) 2.4 10^3/uL (0.5-4.7); ABSOLUTE MONOCYTES (AUTO) 0.6 10^3/uL (0.1-1.4); ABSOLUTE NEUT (AUTO) 8.7 10^3/uL (1.7-8.2); BASOPHILS % (AUTO) 1.3 % (0-2); EOSINOPHILS % (AUTO) 3.4 % (0-6); HEMATOCRIT 34.9 % (37.9-51.0); HEMOGLOBIN 11.3 g/dL (13.5-17.0); LYMPHOCYTES % (AUTO) 19.9 % (13-45); MEAN CORPUSCULAR HEMOGLOBIN 29.4 pg (27.0-33.4); MEAN CORPUSCULAR HGB CONC 32.3 g/dL (32.0-36.0); MEAN CORPUSCULAR VOLUME 91 fl (80-97); MONOCYTES % (AUTO) 4.5 % (3-13); PLATELET COUNT 200 10^3/uL (150-450); RED BLOOD COUNT 3.82 10^6/uL (4.35-5.55); RED CELL DISTRIBUTION WIDTH 17.8 % (11.5-14.0); SEGMENTED NEUTROPHILS % (AUTO) 70.9 % (42-78); TOTAL CELLS COUNTED % (AUTO) 100 %; WHITE BLOOD COUNT 12.3 10^3/uL (4.0-10.5)
[2018-01-21 04:32] LABS: ALANINE AMINOTRANSFERASE 61 U/L (21-72); ALBUMIN 4.2 g/dL (3.5-5.0); ALKALINE PHOSPHATASE 83 U/L (38-126); ANION GAP 15 (5-19); ASPARTATE AMINO TRANSFERASE 55 U/L (17-59); BILIRUBIN,DIRECT 0.4 mg/dL (0.0-0.4); BILIRUBIN,TOTAL 0.4 mg/dL (0.2-1.3); BLOOD UREA NITROGEN 66 mg/dL (7-20); CALCIUM 7.8 mg/dL (8.4-10.2); CARBON DIOXIDE 18 mmol/L (22-30); CHLORIDE 116 mmol/L (98-107); GLUCOSE 148 mg/dL (75-110); POTASSIUM 3.9 mmol/L (3.6-5.0); SODIUM 149.2 mmol/L (137-145); TOTAL PROTEIN 7.2 g/dL (6.3-8.2)
--- NOTE | 2018-01-21 04:40 | RADIOLOGY REPORT (SQ) ---
Chest single view on 01/21/2018 at 4:27 AM CLINICAL INDICATION: Short of breath COMPARISON: None FINDINGS: 2-lead left subclavian AICD device is noted in place. Mild increased reticular interstitial changes may be chronic in nature but cannot exclude mild edema. Correlation with an old exam or short-term follow-up will be useful. Cardiac, hilar and mediastinal contours are within normal limits. No bony abnormality is noted. IMPRESSION: Mild increased interstitial changes may be chronic in nature but cannot exclude mild edema.
[2018-01-21 04:50] LABS: TROPONIN I 0.054 ng/mL
[2018-01-21] MEDS ORDERED: FUROSEMIDE INJ/PF 20 MG/2 ML SDV IV ONE (06:28)
[2018-01-21] MEDS ORDERED: NITROGLYCERIN 10 MG (0.4 MG/HR) PATCH.TD24 TD ONE (06:29)
[2018-01-21] MEDS ORDERED: GLUCAGON,HUMAN RECOMB 1 MG INJ IM PRN (06:55)
[2018-01-21] MEDS ORDERED: DEXTROSE 40% GEL 15 GM TUBE PO PRN ×2 (06:55)
[2018-01-21] MEDS ORDERED: DEXTROSE 50%-WATER 25 GM/50 ML DISP.SYRIN IV PRN ×2 (06:55)
--- NOTE | 2018-01-21 06:55 | PDOC H&P ---
History of Present Illness Admission Date/PCP: 01/21/2018 DEIDRE FELDMAN MD Patient complains of: Shortness of breath History of Present Illness: KARINA SHIELDS is a 67 year old male presents with complaint of difficulty breathing that started at 2:30 AM. He said yesterday during the day he felt completely fine he woke up suddenly around 2:30 am feeling very short of breath. Patient has a history of congestive heart failure. He does have pacemaker. He is a former smoker but has not smoked in several years. Paramedics arrived his O2 sats were in the low 80s. He denies ever having any chest pain or chest pressure. Paramedics gave him a dose of 1.5 IV Vasotec and nitro patch as he was hypertensive, placed him on CPAP. He says he feels much improved after being placed on the CPAP. Paramedics said on initial examination had a lot of rales throughout his lung szymanski. Of note the paramedics on the monitor his heart rate would go from the 60s and 70s down to the 30s and go right back up, but apparently was a machine error. He does have a pacemaker. Whenever his heart rate would drop on the monitor he still had a palpable pulse that was in the 50s and 60s; therfore, the monitor likely was just not capturing his rhythm appropriately. His concession worker is Dr. Laura Lynn in [place]. Denies recent fever, chills, nausea, vomiting, has a very mild cough with chest congestion, denies wheezing, denies abdominal pain, diarrhea or constipation, denies urinary symptoms. In the emergency department is on BiPAP, comfortable. Chest x-ray shows mild vascular congestion. Telemetry monitoring in the ED showed 8 beat run V. tach the patient tells me that he has palpitations on and off. Patient follows at [facility] were all his concession worker are, EMS did not take him there because they were afraid of the bradycardia. Past Medical History Cardiac Medical History: Reports: Atrial Fibrillation, Other - Arrhythmias, ICD and pacemaker Endocrine Medical History: Reports: Diabetes Mellitus Type 2 Musculoskeltal Medical History: Reports: Arthritis Past Surgical History Past Surgical History: Comment Only: Vascular Surgery - TURP 07/10/17 Social History Smoking Status: Former Smoker Drugs: None Family History Family History: Reviewed & Not Pertinent Parental Family History Reviewed: No Children Family History Reviewed: NA Sibling(s) Family History Reviewed.: NA Medication/Allergy Home Medications: Calcium Acetate [Phoslo 667 mg Capsule] 667 mg PO MEALS 07/11/17 Finasteride [Proscar 5 mg Tablet] 5 mg PO DAILY 07/11/17 Insulin Glargine,Hum.rec.anlog [Lantus Solostar] 10 units SQ DAILY 07/11/17 Insulin Lispro [Humalog Insulin (Lispro) 100 unit/mL] 0 units SQ .SLIDING SCALE 07/11/17 Sodium Bicarbonate [Sodium Bicarbonate 650 mg Tablet] 650 mg PO BID 07/11/17 Calcium Acetate [Phoslo 667 mg Capsule] 667 mg PO AC capsule 07/14/17 Calcium Carbonate [Os-Raghav 500 mg Tablet (Oyster-Shell)] 500 mg PO BID tablet Doxycycline Hyclate [Vibramycin 100 mg Tablet] 100 mg PO Q12 5 Days #11 tablet 07/14/17 Insulin Glargine,Hum.rec.anlog [Lantus Insulin 100 Unit/1 ml 10 ml] 10 unit SUBCUT DAILY@1200 unit 07/14/17 Sodium Bicarbonate [Sodium Bicarbonate 650 mg Tablet] 650 mg PO BID tablet 02/21 Sotalol HCl [Betapace 80 mg Tablet] 80 mg PO Q12A tablet 07/14/17 Allergies/Adverse Reactions: No Known Allergies Allergy (Unverified 07/11/17 06:00) Review of Systems Review of Systems: As outlined in the HPI, others negative Physical Exam Vital Signs: Temp Pulse Resp BP Pulse Ox 13 117/81 100 01/21/18 06:01 01/21/18 06:01 01/21/18 06:01 Intake & Output 01/19/18 01/20/18 01/21/18 06:59 06:59 06:59 Weight 78.5 kg Additional comments: General appearance: Well-developed, well-nourished, alert and cooperative, and appears to be in no acute distress. He is wearing BiPAP. Head: Normocephalic Eyes: PEERL, EOMI, vision is grossly intact. Ears: External auditory canal and tympanic membranes clear, hearing grossly intact. Nose: No nasal discharge. Throat: Oral cavity and pharynx normal. No inflammation, swelling, exudate or lesions. Neck: Neck supple, nontender without lymphadenopathy, masses or thyromegaly. Cardiac: Normal S1 and S2. No S3, S4 or murmurs. Rhythm is regular. There is no peripheral edema, cyanosis or pallor. Extremities are warm and well perfused. Capillary refill is less than 2 seconds. No carotid bruits. Lungs: Bibasilar rales, minimal rhonchi, not appreciate wheezing or diminished breath sounds. Not using accessory muscles. Abdomen: Positive bowel sounds. Soft. Nondistended, nontender. No guarding or rebound. No masses. No hepatosplenomegaly Extremities: No significant deformity or joint abnormality. No edema. Peripheral pulses intact. No varicosities. Neurological: Cranial nerves II through XII grossly intact. Strength and sensation symmetric and intact throughout. Reflexes 2+ throughout. Skin: Skin normal color, texture and turgor with no lesions or eruptions, warm and dry. Psychiatric: The mental examination revealed the patient was oriented to person , place, and time. The patient was able to demonstrate good judgment on recent , without hallucinations, abnormal affect or abnormal behaviors. Results Laboratory Results: 01/21/18 04:00 01/21/18 04:00 01/21/18 01/21/18 04:00 04:00 WBC 12.3 H RBC 3.82 L Hgb 11.3 L Hct 34.9 L MCV 91 MCH 29.4 MCHC 32.3 RDW 17.8 H Plt Count 200 Seg Neutrophils % 70.9 Lymphocytes % 19.9 Monocytes % 4.5 Eosinophils % 3.4 Basophils % 1.3 Absolute Neutrophils 8.7 H Absolute Lymphocytes 2.4 Absolute Monocytes 0.6 Absolute Eosinophils 0.4 Absolute Basophils 0.2 Sodium 149.2 H Potassium 3.9 Chloride 116 H Carbon Dioxide 18 L Anion Gap 15 BUN 66 H Creatinine 4.99 H Est GFR ( Amer) 14 L Est GFR (Non-Af Amer) 12 L Glucose 148 H Calcium 7.8 L Total Bilirubin 0.4 AST 55 ALT 61 Alkaline Phosphatase 83 Total Protein 7.2 Albumin 4.2 01/21/18 04:00 Troponin I 0.054 NT-Pro-B Natriuret Pep [id number] H EKG Comments: EKG reviewed by me, shows sinus rhythm with PVCs incomplete LBBB, diffuse T- wave inversions, no acute ST elevations or ST depressions. Impressions: Chest X-Ray 01/21/18 04:10 IMPRESSION: Mild increased interstitial changes may be chronic in nature but cannot exclude mild edema. Assessment & Plan - Diagnosis (1) Acute pulmonary edema Is this a current diagnosis for this admission?: Yes Plan: Patient comes with an acute episode of shortness of breath while sleeping, patient has been doing well before that. Chest x-ray shows mild bilateral pulmonary congestion. Patient is feeling better after Nitropatch and BiPAP given. I will go ahead and gave him 20 mg of IV Lasix. I am placing cardiology consultation. We will continue with Nitropatch. Patient does not look fluid overloaded. RT consult. (2) Acute worsening of stage 4 chronic kidney disease Is this a current diagnosis for this admission?: Yes Plan: Patient has a BUN of 66 and creatinine of 4.99, his last BUN was 66 and creatinine 3.92, he has CKD stage IV. Will have to close monitoring his renal function, avoid nephrotoxic drugs. (3) Atrial fibrillation Qualifiers: Atrial fibrillation type: paroxysmal Qualified Code(s): I48.0 - Paroxysmal atrial fibrillation Is this a current diagnosis for this admission?: Yes Plan: Patient is now in sinus rhythm, continue with sotalol and Eliquis. (4) Chronic systolic CHF (congestive heart failure) Is this a current diagnosis for this admission?: Yes Plan: Patient is not on fluid overload, patient is on Lasix as needed at home but he has not needed to take any dose in a long time. As I said before I will give 20 mg of IV Lasix and wait for cardiology recommendations. Continuous telemetry monitoring. (5) Insulin dependent diabetes mellitus Is this a current diagnosis for this admission?: Yes Plan: Place the patient on Accu-Cheks q. before meals and at bedtime, insulin Lantus as home, insulin lispro sliding scale and hypoglycemia protocol. (6) Arrhythmia Is this a current diagnosis for this admission?: Yes Plan: She has history of arrhythmias as consequence of his heart condition, in the emergency department he had an 8 beat run V. tach, he has an ICD that no fire. We will send magnesium levels. Not sure if his ICD and pacemaker needs interrogation, leave the decision to cardiology. (7) Bradycardia Is this a current diagnosis for this admission?: Yes Plan: Documented by EMS, they were unclear if this was a true bradycardia or other problems, they state it was down to the 30s, no bradycardia documented in the ED. Probably hold beta-blockers until cardiology evaluation. No medications listed yet. - Time Time Spent: 30 to 50 Minutes - Inpatient Certification Based on my medical assessment, after consideration of the patient's comorbidities, presenting symptoms, or acuity I expect that the services needed warrant INPATIENT care.: Yes I certify that my determination is in accordance with my understanding of Medicare's requirements for reasonable and necessary INPATIENT services [42 CFR 412.3e].: Yes Medical Necessity: Significant Comorbidiites Make Outpatient Treatment Too Risky , Need For Continuous Telemetry Monitoring
--- NOTE | 2018-01-21 09:18 | EKG REPORT ---
SEVERITY:- ABNORMAL ECG - SINUS RHYTHM MULTIPLE VENTRICULAR PREMATURE COMPLEXES INCOMPLETE LEFT BUNDLE BRANCH BLOCK LOW VOLTAGE IN FRONTAL LEADS LVH WITH SECONDARY REPOLARIZATION ABNORMALITY : Confirmed by: Linnette Hinkle 21-Jan-2018 09:18:10
[2018-01-21 10:53] LABS: CHOLESTEROL 120.19 mg/dL (0-200); TRIGLYCERIDES 54 mg/dL (<150)
[2018-01-21 11:03] LABS: DIRECT LDL 53 mg/dL (<100)
[2018-01-21] MEDS: INSULIN REG, HUMAN 100 UNIT/ML 3 ML VIAL (PYX) SUBCUT PRN ×3 (13:02→22:58)
--- NOTE | 2018-01-21 14:10 | Progress Note ---
Provider Note Provider Note: This is a 67 years old male patient admitted this morning with chief complaint of shortness of breath and was impression of acute pulmonary edema. Patient has underlying end-stage renal disease with GFR of 12, BUN 66 creatinine of 4.04. I will consult for Dr. Zavala to evaluate this patient. I accept this patient and I will be his primary attending.
[2018-01-21] MEDS ORDERED: HYDROCORTISONE 1% CREAM 28.35 GM TP PRN (17:45)
[2018-01-21] MEDS: SODIUM BICARBONATE 650 MG TABLET PO SCH (18:01)
[2018-01-21] MEDS: CALCIUM CARBONATE 500 MG TABLET PO SCH (18:01)
[2018-01-21] MEDS: CALCIUM ACETATE 667 MG CAPSULE PO SCH (18:02)
[2018-01-21] MEDS: APIXABAN 5 MG TABLET PO SCH (18:02)
[2018-01-21 18:19] LABS: APPEARANCE,URINE CLEAR; BILIRUBIN,URINE NEGATIVE (NEGATIVE); GLUCOSE, URINE 50 mg/dL (NEGATIVE); KETONES,URINE NEGATIVE (NEGATIVE); LEUKOCYTE ESTERASE,URINE MODERATE (NEGATIVE); NITRITE,URINE NEGATIVE (NEGATIVE); PROTEIN,URINE 30 mg/dL (NEGATIVE); UROBILINOGEN,URINE NEGATIVE mg/dL (<2.0)
[2018-01-21 18:20] LABS: COLOR,URINE YELLOW
--- NOTE | 2018-01-21 20:39 | PDOC CONSULTATION ---
Consultation Consult Date: 01/21/18 Attending physician:: ZORAN LU Consult reason:: CHF History of Present Illness Admission Date/PCP: 01/21/18 06:32 DEIDRE FELDMAN MD Patient complains of: Dyspnea History of Present Illness: KARINA SHIELDS is a 67 year old male presents with complaint of difficulty breathing that started at 2:30 AM. He said yesterday during the day he felt completely fine he woke up suddenly around 2:30 am feeling very short of breath. Patient has a history of congestive heart failure. He does have pacemaker. He is a former smoker but has not smoked in several years. Paramedics arrived his O2 sats were in the low 80s. He denies ever having any chest pain or chest pressure. Paramedics gave him a dose of 1.5 IV Vasotec and nitro patch as he was hypertensive, placed him on CPAP. He says he feels much improved after being placed on the CPAP. Paramedics said on initial examination had a lot of rales throughout his lung szymanski. Of note the paramedics on the monitor his heart rate would go from the 60s and 70s down to the 30s and go right back up, but apparently was a machine error. He does have a pacemaker. Whenever his heart rate would drop on the monitor he still had a palpable pulse that was in the 50s and 60s; therfore, the monitor likely was just not capturing his rhythm appropriately. His ladle cleaner is Dr. Laura Lynn in [place]. Denies recent fever, chills, nausea, vomiting, has a very mild cough with chest congestion, denies wheezing, denies abdominal pain, diarrhea or constipation, denies urinary symptoms. In the emergency department is on BiPAP, comfortable. Chest x-ray shows mild vascular congestion. Telemetry monitoring in the ED showed 8 beat run V. tach the patient tells me that he has palpitations on and off. Patient follows at [place] were all his ladle cleaner are, EMS did not take him there because they were afraid of the bradycardia. This history obtained by the hospitalist was reviewed with the patient and his . This was confirmed. Patient denied any recent defibrillator shocks. Patient describes history of very advanced renal failure. He is currently not on any transplant list. Patient also not done any RO inhibitor or ARB because of advanced renal failure. Patient claims he does have regular follow-up with his plastics design engineer and ladle cleaner. Patient denied any recent significant weight gain. Patient had a sleep study a few years ago which he claims was negative. Past Medical History Cardiac Medical History: Reports: Atrial Fibrillation, Other - Arrhythmias, ICD and pacemaker Endocrine Medical History: Reports: Diabetes Mellitus Type 2 Musculoskeltal Medical History: Reports: Arthritis Past Surgical History Past Surgical History: Reports: Internal Defibrillator, Pacemaker Comment Only: Vascular Surgery - TURP 07/10/17 Social History Information Source: Patient Smoking Status: Former Smoker Frequency of Alcohol Use: Occasional Hx Recreational Drug Use: No Drugs: None Hx Prescription Drug Abuse: No - Advance Directive Surrogate healthcare decision maker:: Patient's is the surrogate decision-maker Family History Family History: Hypertension Parental Family History Reviewed: Yes Children Family History Reviewed: Yes Sibling(s) Family History Reviewed.: Yes Medication/Allergy Home Medications: Calcium Acetate [Phoslo 667 mg Capsule] 667 mg PO MEALS 07/11/17 Insulin Glargine,Hum.rec.anlog [Lantus Solostar] 10 units SQ DAILY 07/11/17 Insulin Lispro [Humalog Insulin (Lispro) 100 unit/mL] 0 units SQ .SLIDING SCALE 07/11/17 Sodium Bicarbonate [Sodium Bicarbonate 650 mg Tablet] 650 mg PO BID 07/11/17 Calcium Carbonate [Os-Raghav 500 mg Tablet (Oyster-Shell)] 500 mg PO BID tablet Amiodarone HCl [Cordarone 200 mg Tablet] 200 mg PO DAILY 01/21/18 Apixaban [Eliquis 5 mg Tablet] 5 mg PO BID@0700,1900 01/21/18 Aspirin [Aspirin EC] 81 mg PO DAILY 01/21/18 Carvedilol [Coreg 3.125 mg Tablet] 3.125 mg PO Q12 01/21/18 Furosemide [Lasix 40 mg Tablet] 40 mg PO ASDIR PRN 01/21/18 Allergies/Adverse Reactions: No Known Allergies Allergy (Unverified 07/11/17 06:00) Review of Systems Review of Systems: Please see history of present illness and past medical history as wall. Constitutional: No fever or chills reported. Head : No recent chronic headaches, recent head injury. Eyes: No recent eye pain, diplopia, redness, discharge, acute visual changes. Ears: No recent chronic ear pain, acute hearing loss, ear discharge. Oral cavity: No recent ulcerations, bleeding, oral cavity discomfort. Neck: No recent acute neck pain reported. Hematologic: No recent easy bruising or bleeding. Lymphatic: No recent lymph node enlargement reported. Cardiovascular system review: See history of present illness. Respiratory system review: No hemoptysis or blood clots in the lungs reported. Mild Shortness of breath on exertion Gastrointestinal system review: Negative for any recent acute hematemesis, melena. Genitourinary system review: No recent acute or chronic hematuria, flank pain, UTI etc. reported. Skin system review: Negative for any recent abnormal bruising, no rash, no pruritus reported. Neurologic: No prior history of strokes, mini strokes, seizure disorder. Psychologic: No history of major psychosis or major depression reported. Musculoskeletal: Minor aches and pains reported. No acute joint swelling reported. Endocrine: No recent polyuria, polydipsia, recent heat or cold intolerance. Physical Exam Vital Signs: Temp Pulse Resp BP Pulse Ox 98.3 F 70 16 126/81 H 99 01/21/18 15:21 01/21/18 15:21 01/21/18 15:21 01/21/18 15:21 01/21/18 16:30 Intake & Output 01/20/18 01/21/18 01/22/18 06:59 06:59 06:59 Intake Total 1123 Output Total 2650 Balance -1527 Weight 76.6 kg Exam: GENERAL: well-nourished and in no acute distress. Alert and oriented x3 HEAD: Atraumatic, normocephalic. EYES: Pupils equal round and reactive to light, extraocular movements intact, sclera anicteric, conjunctiva are normal. ENT: TMs normal, nares patent, oropharynx clear without exudates. Moist mucous membranes. No oral ulcerations or bleeding gums noted NECK: supple without lymphadenopathy. Trachea is central. No cervical or axillary lymphadenopathy noted. Carotids are 2+, JVD WNL LUNGS: Respiration seems nonlabored, no significant accessory muscle action noted. Breath sounds clear to auscultation bilaterally and equal noted. No wheezes rales or rhonchi noted. No significant dullness noted on percussion. CHEST: Palpation of the chest wall shows no significant chest wall tenderness. Defibrillator noted left-sided chest HEART: [place] BUS AIDE, No PSH, 1/6 JONG aortic area, 1/6 harvey systolic murmur mitral area, no rubs, no gallops. ABDOMEN: Soft, no significant tenderness appreciated, normoactive bowel sounds. No guarding, no rebound. No rigidity noted . No masses appreciated. EXTREMITIES: Pedal pulses are 1-2+, no calf tenderness noted. No clubbing or cyanosis. negative pedal edema noted NEUROLOGICAL: Focused neurological exam showed no significant neurologic deficit. Normal speech, no focal weakness appreciated. PSYCH: Normal mood, normal affect. Judgment and insight within normal limits. SKIN: No significant ecchymosis, skin is noted to be warm. MUSCULOSKELETAL EXAM: No significant acute joint swelling noted. Results Laboratory Results: 01/21/18 18:00 Urine Color YELLOW Urine Appearance CLEAR Urine pH 5.0 Ur Specific Logan 1.010 Urine Protein 30 H Urine Glucose (UA) 50 H Urine Ketones NEGATIVE Urine Blood MODERATE H Urine Nitrite NEGATIVE Ur Leukocyte Esterase MODERATE H Urine WBC (Auto) 91 Urine RBC (Auto) 1 01/21/18 01/21/18 10:04 15:58 Troponin I 0.112 0.113 EKG Comments: Sinus rhythm with minor nonspecific ST-T wave changes and frequent VPCs. Impressions: Chest X-Ray 01/21/18 04:10 IMPRESSION: Mild increased interstitial changes may be chronic in nature but cannot exclude mild edema. Assessment & Plan - Diagnosis (1) Acute on chronic systolic heart failure Is this a current diagnosis for this admission?: Yes (2) Atrial fibrillation Qualifiers: Atrial fibrillation type: paroxysmal Qualified Code(s): I48.0 - Paroxysmal atrial fibrillation Is this a current diagnosis for this admission?: Yes (3) Cardiomyopathy Qualifiers: Cardiomyopathy type: unspecified Qualified Code(s): I42.9 - Cardiomyopathy , unspecified Is this a current diagnosis for this admission?: Yes (4) Chronic kidney disease (CKD) Qualifiers: Chronic kidney disease stage: stage 4 (severe) Qualified Code(s): N18.4 - Chronic kidney disease, stage 4 (severe) Is this a current diagnosis for this admission?: Yes (5) Anticoagulant long-term use Is this a current diagnosis for this admission?: Yes (6) Hypertension Qualifiers: Hypertension type: essential hypertension Qualified Code(s): I10 - Essential (primary) hypertension Is this a current diagnosis for this admission?: Yes - Notes Notes: CHF: Seems reasonably compensated based on today's exam. Continue current management plans. Patient has acute on chronic CHF. Currently only on carvedilol. This dose can be increased as tolerated. Severe renal failure: Patient claims chronic renal failure. May consider nephrology evaluation. Patient claims that he is being followed by a computer science instructor. Cardiomyopathy: Patient is status post defibrillator placement. A 2D echocardiogram ordered by hospitalist will be reviewed. Hypertension: Blood pressure goal should be 130/80 or less in this patient with severe dilated cardiomyopathy. Atrial fibrillation: Paroxysmal. Continue chronic anticoagulation and amiodarone therapy. Troponin I elevation: Possibly related to CHF and advanced renal failure. Patient claims that previous heart catheterization had shown no blockages. A stress test if needed can be performed as an outpatient. Currently patient is chest pain-free. Patient does have private ladle cleaner at [facility], will have low threshold for transfer, should he have recurrent CHF or any significant bump in troponin elevation. - Time Time Spent: 30 to 50 Minutes Medications reviewed and adjusted accordingly: Yes
[2018-01-21] MEDS: CARVEDILOL 3.125 MG TABLET PO SCH (21:34)
[2018-01-22 06:18] LABS: HEMATOCRIT 32.2 % (37.9-51.0); HEMOGLOBIN 10.6 g/dL (13.5-17.0); MEAN CORPUSCULAR HEMOGLOBIN 29.8 pg (27.0-33.4); MEAN CORPUSCULAR VOLUME 90 fl (80-97); PLATELET COUNT 162 10^3/uL (150-450); RED BLOOD COUNT 3.57 10^6/uL (4.35-5.55); RED CELL DISTRIBUTION WIDTH 17.4 % (11.5-14.0); WHITE BLOOD COUNT 7.3 10^3/uL (4.0-10.5)
[2018-01-22 06:35] LABS: ALANINE AMINOTRANSFERASE 50 U/L (21-72); ALBUMIN 3.3 g/dL (3.5-5.0); ALKALINE PHOSPHATASE 77 U/L (38-126); ANION GAP 17 (5-19); ASPARTATE AMINO TRANSFERASE 23 U/L (17-59); BILIRUBIN,DIRECT 0.3 mg/dL (0.0-0.4); BILIRUBIN,TOTAL 0.5 mg/dL (0.2-1.3); BLOOD UREA NITROGEN 65 mg/dL (7-20); CALCIUM 7.9 mg/dL (8.4-10.2); CARBON DIOXIDE 13 mmol/L (22-30); CHLORIDE 116 mmol/L (98-107); GLUCOSE 143 mg/dL (75-110); PHOSPHORUS 7.1 mg/dL (2.5-4.5); POTASSIUM 3.7 mmol/L (3.6-5.0); SODIUM 145.9 mmol/L (137-145); TOTAL PROTEIN 5.8 g/dL (6.3-8.2)
[2018-01-22] MEDS: APIXABAN 5 MG TABLET PO SCH (06:35)
--- NOTE | 2018-01-22 08:05 | PDOC DISCHARGE SUMMARY ---
General - Admit/Disc Date/PCP Admission Date/Primary Care Provider: 01/21/18 06:32 DEIDRE FELDMAN MD Discharge Date: 01/22/18 - Additional Information Home Medications: Calcium Acetate [Phoslo 667 mg Capsule] 667 mg PO MEALS 07/11/17 Insulin Glargine,Hum.rec.anlog [Lantus Solostar] 10 units SQ DAILY 07/11/17 Insulin Lispro [Humalog Insulin (Lispro) 100 unit/mL] 0 units SQ .SLIDING SCALE 07/11/17 Sodium Bicarbonate [Sodium Bicarbonate 650 mg Tablet] 650 mg PO BID 07/11/17 Calcium Carbonate [Os-Raghav 500 mg Tablet (Oyster-Shell)] 500 mg PO BID tablet Amiodarone HCl [Cordarone 200 mg Tablet] 200 mg PO DAILY 01/21/18 Apixaban [Eliquis 5 mg Tablet] 5 mg PO BID@0700,1900 01/21/18 Aspirin [Aspirin EC] 81 mg PO DAILY 01/21/18 Carvedilol [Coreg 3.125 mg Tablet] 3.125 mg PO Q12 01/21/18 Furosemide [Lasix 40 mg Tablet] 40 mg PO ASDIR PRN 01/21/18 History of Present Illness History of Present Illness: KARINA SHIELDS is a 67 year old male presents with complaint of difficulty breathing that started at 2:30 AM. He said yesterday during the day he felt completely fine he woke up suddenly around 2:30 am feeling very short of breath. Patient has a history of congestive heart failure. He does have pacemaker. He is a former smoker but has not smoked in several years. Paramedics arrived his O2 sats were in the low 80s. He denies ever having any chest pain or chest pressure. Paramedics gave him a dose of 1.5 IV Vasotec and nitro patch as he was hypertensive, placed him on CPAP. He says he feels much improved after being placed on the CPAP. Paramedics said on initial examination had a lot of rales throughout his lung szymanski. Of note the paramedics on the monitor his heart rate would go from the 60s and 70s down to the 30s and go right back up, but apparently was a machine error. He does have a pacemaker. Whenever his heart rate would drop on the monitor he still had a palpable pulse that was in the 50s and 60s; therfore, the monitor likely was just not capturing his rhythm appropriately. His cut plug packer is Dr. Laura Lynn in [place]. Denies recent fever, chills, nausea, vomiting, has a very mild cough with chest congestion, denies wheezing, denies abdominal pain, diarrhea or constipation, denies urinary symptoms. In the emergency department is on BiPAP, comfortable. Chest x-ray shows mild vascular congestion. Telemetry monitoring in the ED showed 8 beat run V. tach the patient tells me that he has palpitations on and off. Patient follows at [place] were all his cut plug packer are, EMS did not take him there because they were afraid of the bradycardia. Hospital Course Hospital Course: This is a 67 years old male patient admitted with chief complaint of shortness of breath secondary to pulmonary edema. Patient has been managed with fluid restriction and Lasix. Patient has underlying end-stage renal disease with GFR of 12. Patient is being followed by his primary technical aid at [place] and he has upcoming appointment to discuss predialysis instruction. Patient also evaluated during his stay by Dr. Zavala technical aid and Dr. Hinkle cut plug packer. This morning I seen patient sitting up in chair awake alert oriented is not in pain or any form of distress. He is enjoying his breakfast. He claims that his shortness of breath has subsided. Patient advised to keep up his appointment with his primary technical aid. Physical Exam Vital Signs: Temp Pulse Resp BP Pulse Ox 97.7 F 90 14 133/68 H 100 01/22/18 03:41 01/22/18 06:50 01/22/18 03:41 01/22/18 03:41 01/22/18 03:41 Intake & Output 01/21/18 01/22/18 01/23/18 06:59 06:59 06:59 Intake Total 1128 Output Total 2850 Balance -1722 Weight 75 kg General appearance: PRESENT: no acute distress Head exam: PRESENT: atraumatic Mouth exam: PRESENT: moist Respiratory exam: PRESENT: clear to auscultation naina. ABSENT: rales, rhonchi, wheezes Cardiovascular exam: PRESENT: RRR. ABSENT: diastolic murmur, rubs, systolic murmur GI/Abdominal exam: PRESENT: normal bowel sounds, soft. ABSENT: distended, guarding, mass, organolmegaly, rebound, tenderness Neurological exam: PRESENT: alert, awake, oriented to time, oriented to situation Psychiatric exam: PRESENT: normal mood Results Laboratory Results: 01/22/18 05:50 01/22/18 05:50 01/21/18 01/22/18 01/22/18 18:00 05:50 05:50 WBC 7.3 RBC 3.57 L Hgb 10.6 L Hct 32.2 L MCV 90 MCH 29.8 MCHC 33.0 RDW 17.4 H Plt Count 162 Sodium 145.9 H Potassium 3.7 Chloride 116 H Carbon Dioxide 13 L Anion Gap 17 BUN 65 H Creatinine 4.78 H Est GFR ( Amer) 15 L Est GFR (Non-Af Amer) 12 L Glucose 143 H Calcium 7.9 L Phosphorus 7.1 H Total Bilirubin 0.5 AST 23 ALT 50 Alkaline Phosphatase 77 Total Protein 5.8 L Albumin 3.3 L TSH PTH Intact Urine Color YELLOW Urine Appearance CLEAR Urine pH 5.0 Ur Specific Dawson 1.010 Urine Protein 30 H Urine Glucose (UA) 50 H Urine Ketones NEGATIVE Urine Blood MODERATE H Urine Nitrite NEGATIVE Ur Leukocyte Esterase MODERATE H Urine WBC (Auto) 91 Urine RBC (Auto) 1 01/22/18 01/22/18 05:50 05:50 WBC RBC Hgb Hct MCV MCH MCHC RDW Plt Count Sodium Potassium Chloride Carbon Dioxide Anion Gap BUN Creatinine Est GFR ( Amer) Est GFR (Non-Af Amer) Glucose Calcium Phosphorus Total Bilirubin AST ALT Alkaline Phosphatase Total Protein Albumin TSH 2.16 PTH Intact 335.8 H Urine Color Urine Appearance Urine pH Ur Specific Dawson Urine Protein Urine Glucose (UA) Urine Ketones Urine Blood Urine Nitrite Ur Leukocyte Esterase Urine WBC (Auto) Urine RBC (Auto) 01/21/18 01/21/18 01/21/18 10:04 15:58 22:00 Troponin I 0.112 0.113 0.083 Impressions: Chest X-Ray 01/21/18 04:10 IMPRESSION: Mild increased interstitial changes may be chronic in nature but cannot exclude mild edema. Qualifiers - * PATIENT BEING DISCHARGED WITH ANY OF THE FOLLOWING DIAGNOSIS: No
[2018-01-22] MEDS: INSULIN REG, HUMAN 100 UNIT/ML 3 ML VIAL (PYX) SUBCUT PRN (08:21)
[2018-01-22 08:27] VITALS: BP 113/61
--- NOTE | 2018-01-22 09:01 | PDOC CONSULTATION ---
Consultation Consult Date: 01/21/18 Consult reason:: CKD stage IV in the presence of congestive heart failure History of Present Illness Admission Date/PCP: 01/21/18 06:32 DEIDRE FELDMAN MD History of Present Illness: KARINA SHIELDS is a 67 year old male with a history of diabetes mellitus, hypertension, Atrial fibrillation, CKD stage IV with base creatinine of around 4 was admitted early this morning with history of acute shortness of breath while sleeping. There was no history of chest pains This is the third attack of Orthopneic CHF this year as per patient who has apparent Idiopathic dilated cardiomyopathy with a LVEF of aprox 25 % and has a AICD implanted by his cardilogist Dr Case. Evaluations revealed that he was in congestive heart failure and has been treated appropriately with IV diuretics nitro glycerin and oxygen. He was on BiPAP which has now been taken and is now saturating relatively well at 4 L of nasal cannula. Denies any history of chest pains, fever or chills. Labs and medications were reviewed with the patient. Past Medical History Cardiac Medical History: Reports: Atrial Fibrillation, Hypertension-primary, Other - Arrhythmias, ICD and pacemaker Endocrine Medical History: Reports: Diabetes Mellitus Type 2 Renal/ Medical History: Reports: Benign Prostatic Hyperplasia - TURP 08/09/17, Chronic Kidney Disease Stage IV Musculoskeltal Medical History: Reports: Arthritis Past Surgical History Past Surgical History: Comment Only: Vascular Surgery - TURP 07/10/17 Social History Smoking Status: Former Smoker Frequency of Alcohol Use: Occasional Hx Recreational Drug Use: No Drugs: None Hx Prescription Drug Abuse: No Medication/Allergy Home Medications: Calcium Acetate [Phoslo 667 mg Capsule] 667 mg PO MEALS 07/11/17 Insulin Glargine,Hum.rec.anlog [Lantus Solostar] 10 units SQ DAILY 07/11/17 Insulin Lispro [Humalog Insulin (Lispro) 100 unit/mL] 0 units SQ .SLIDING SCALE 07/11/17 Sodium Bicarbonate [Sodium Bicarbonate 650 mg Tablet] 650 mg PO BID 07/11/17 Calcium Carbonate [Os-Raghav 500 mg Tablet (Oyster-Shell)] 500 mg PO BID tablet Amiodarone HCl [Cordarone 200 mg Tablet] 200 mg PO DAILY 01/21/18 Apixaban [Eliquis 5 mg Tablet] 5 mg PO BID@0700,1900 01/21/18 Aspirin [Aspirin EC] 81 mg PO DAILY 01/21/18 Carvedilol [Coreg 3.125 mg Tablet] 3.125 mg PO Q12 01/21/18 Furosemide [Lasix 40 mg Tablet] 40 mg PO ASDIR PRN 01/21/18 Allergies/Adverse Reactions: No Known Allergies Allergy (Unverified 07/11/17 06:00) Review of Systems Constitutional: PRESENT: fatigue. ABSENT: fever(s), headache(s), night sweats Cardiovascular: PRESENT: dyspnea on exertion, orthropnea. ABSENT: chest pain, palpitations Gastrointestinal: ABSENT: diarrhea, dysphagia, heartburn Neurological: ABSENT: dizziness, numbness, syncope Hematologic/Lymphatic: ABSENT: easy bleeding, easy bruising, lymphadenopathy Physical Exam Vital Signs: Temp Pulse Resp BP Pulse Ox 98.0 F 70 16 131/73 H 100 01/21/18 12:32 01/21/18 12:32 01/21/18 12:32 01/21/18 12:32 01/21/18 12:32 Intake & Output 01/20/18 01/21/18 01/22/18 06:59 06:59 06:59 Weight 76.6 kg General appearance: PRESENT: no acute distress, thin Eye exam: PRESENT: PERRLA. ABSENT: conjunctival injection, conjunctiva pale Ear exam: PRESENT: normal external ear exam Mouth exam: PRESENT: moist, neck supple Neck exam: ABSENT: lymphadenopathy, meningismus, tenderness, thyromegaly Respiratory exam: PRESENT: clear to auscultation naina. ABSENT: crackles, rhonchi Cardiovascular exam: PRESENT: +S1, +S2, systolic murmur GI/Abdominal exam: PRESENT: normal bowel sounds, soft. ABSENT: organomegaly, tenderness Extremities exam: ABSENT: pedal edema Neurological exam: PRESENT: alert, oriented to person, oriented to place, oriented to time Skin exam: ABSENT: cyanosis, erythema, rash Results Laboratory Results: 01/21/18 10:04 Troponin I 0.112 Impressions: Chest X-Ray 01/21/18 04:10 IMPRESSION: Mild increased interstitial changes may be chronic in nature but cannot exclude mild edema. Assessment & Plan - Diagnosis (1) Acute worsening of stage 4 chronic kidney disease Is this a current diagnosis for this admission?: Yes Plan: Non Oiguric. In the face of CHF and idiopathic Cardiomyopathy.continue on current medications.Will follow. (2) Flash pulmonary edema Plan: Improving. (3) Atrial fibrillation Qualifiers: Atrial fibrillation type: paroxysmal Qualified Code(s): I48.0 - Paroxysmal atrial fibrillation Is this a current diagnosis for this admission?: Yes Plan: On Amiodarone.Rate controlled. (4) Metabolic acidosis Plan: Adjust bicarb. (5) Renal osteodystrophy Plan: On binders.Start Calcitriol. (6) Diabetes 1.5, managed as type 2 Plan: Advised on tight control.
[2018-01-22] MEDS: SODIUM BICARBONATE 650 MG TABLET PO SCH (09:13)
[2018-01-22] MEDS: CALCIUM CARBONATE 500 MG TABLET PO SCH (09:13)
[2018-01-22] MEDS: CALCIUM ACETATE 667 MG CAPSULE PO SCH (09:13)
[2018-01-22] MEDS: CARVEDILOL 3.125 MG TABLET PO SCH (09:15)
[2018-01-22] MEDS ORDERED: AMIODARONE HCL 200 MG TABLET PO SCH (10:00)
[2018-01-22] MEDS ORDERED: ASPIRIN 81 MG TABLET, ENT COATED PO SCH (10:00)
[2018-01-22] MEDS ORDERED: CALCITRIOL 0.25 MCG CAPSULE PO SCH (10:00)
[2018-01-22] MEDS ORDERED: INSULIN GLARGINE,HUM.REC.ANLOG 300 UNIT/3 ML INSULN.PEN SUBCUT SCH (10:00)
--- NOTE | 2018-01-22 22:48 | EKG REPORT ---
SEVERITY:- ABNORMAL ECG - A-V DUAL-PACED COMPLEXES W/ SOME INHIBITION VPCs : Confirmed by: Linnette Hinkle 22-Jan-2018 22:48:01
--- NOTE | 2018-01-23 09:58 | XCELERA REPORT ---
[address] [address] Transthoracic Echocardiogram Report Name: KARINA SHIELDS Age: 67 yrs Gender: Male : 1950 Patient Status: Inpatient Patient Location: [address] [place] [address] Study Date: 01/22/2018 08:27 AM Procedure: A complete two-dimensional transthoracic echocardiogram was performed (2D, M-mode, spectral and color flow Doppler). The study was technically adequate with some images being suboptimal in quality. Reason For Study: CHF Ordering Physician: LINNETTE HINKLE Performed By: Piyl Muhammad Interpretation Summary LV EF is 35% Left ventricular systolic function is moderately reduced. There is borderline concentric left ventricular hypertrophy. The left ventricle is grossly normal size. Doppler measurements suggest pseudonormalized left ventricular relaxation, which is associated with grade II/IV or mild to moderate diastolic dysfunction There is basal inferior wall hypokinesis There is normal right ventricular wall thickness. The right ventricle is grossly normal size. The right ventricular systolic function is normal. There is a trace amount of mitral regurgitation There is no mitral valve stenosis. No aortic regurgitation is present. There is no aortic valve stenosis There is a trace or physiologic amount of tricuspid regurgitation Tricuspid regurgitation jet envelope not well defined to measure RV systolic pressure accurately. The aortic root is not well visualized but is probably normal size. The inferior vena cava was not well visualized Minimal pericardial effusion. Pacemaker wire noted. MMode/2D Measurements & Calculations RVDd: 3.4 cm LVIDd: 5.8 cm FS: 14.4 % Ao root diam: IVSd: 0.98 cm LVIDs: 5.0 cm EDV(Teich): 3.4 cm LVPWd: 0.98 cm 166.6 ml Ao root area: ESV(Teich): 8.9 cm2 116.3 ml EF(Teich): 30.2 % LVOT diam: EDV(MOD-sp4): SV(MOD-sp4): 1.9 cm 195.9 ml 66.6 ml LVOT area: ESV(MOD-sp4): 2.7 cm2 129.3 ml EF(MOD-sp4): 34.0 % Doppler Measurements & Calculations MV E max dayo: MV dec slope: Ao V2 max: LV V1 max P.2 cm/sec 339.6 cm/sec2 126.7 cm/sec 4.0 mmHg MV A max dayo: MV dec time: Ao max P.4 mmHgLV V1 max: 59.3 cm/sec 0.22 sec TARUN(V,D): 2.1 cm2 99.5 cm/sec MV E/A: 1.3 PA V2 max: TR max dayo: Pulm Sys Dayo: 92.4 cm/sec 235.2 cm/sec 46.3 cm/sec PA max PG: TR max P.1 mmHgPulm Perdomo Dayo: 3.4 mmHg 51.3 cm/sec Pulm S/D: 0.90 Left Ventricle The left ventricle is grossly normal size. There is borderline concentric left ventricular hypertrophy. Left ventricular systolic function is moderately reduced. LV EF is 35%. Doppler measurements suggest pseudonormalized left ventricular relaxation, which is associated with grade II/IV or mild to moderate diastolic dysfunction. There is basal inferior wall hypokinesis. Right Ventricle The right ventricle is grossly normal size. There is normal right ventricular wall thickness. The right ventricular systolic function is normal. Atria The right atrium is normal. The left atrium is moderately dilated. Interarterial septum not well visualized and not well dopplered. Cannot comment on ASD/PFO presence. Mitral Valve The mitral valve leaflets are sclerotic, but show no functional abnormalities. There is no mitral valve stenosis. There is a trace amount of mitral regurgitation. Aortic Valve The aortic valve is not well visualized secondary to technical limitations. The aortic valve opens well. There is no aortic valve stenosis. No aortic regurgitation is present. Tricuspid Valve The tricuspid valve is not well visualized, but is grossly normal. There is no tricuspid stenosis. There is a trace or physiologic amount of tricuspid regurgitation. Tricuspid regurgitation jet envelope not well defined to measure RV systolic pressure accurately. Pulmonic Valve The pulmonic valve is not well visualized. Great Vessels The aortic root is not well visualized but is probably normal size. The inferior vena cava was not well visualized. Effusions Minimal pericardial effusion. Incidental Findings Pacemaker wire noted. : LINNETTE HINKLE > Linnette Hinkle
== END 2018-01-22 10:47 | disposition home or self-care (01) | DRG 189 ==
LOC: ER 04:01 → EH 06:32 → 3S 08:18
PROVIDERS: ADMIT Internal Medicine; ATTEND Internal Medicine
PROC: 5A09357 Assistance with Respiratory Ventilation, Less than 24 Consecutive Hours, Continuous Positive Airway Pressure (ICD-10-PCS; principal; 2018-01-21)
DX: J81.0 Acute pulmonary edema (principal); I13.0 Hypertensive heart and chronic kidney disease with heart failure and stage 1 through stage 4 chronic kidney disease, or unspecified chronic kidney disease; N18.4 Chronic kidney disease, stage 4 (severe); N17.9 Acute kidney failure, unspecified; E87.2 Acidosis; I42.9 Cardiomyopathy, unspecified; I50.23 Acute on chronic systolic (congestive) heart failure; I48.0 Paroxysmal atrial fibrillation; E11.22 Type 2 diabetes mellitus with diabetic chronic kidney disease; N40.0 Benign prostatic hyperplasia without lower urinary tract symptoms; M19.90 Unspecified osteoarthritis, unspecified site; N25.0 Renal osteodystrophy; I49.3 Ventricular premature depolarization; I44.7 Left bundle-branch block, unspecified; Z79.01 Long term (current) use of anticoagulants; Z79.4 Long term (current) use of insulin; Z79.899 Other long term (current) drug therapy; Z95.0 Presence of cardiac pacemaker; Z87.891 Personal history of nicotine dependence; Z82.49 Family history of ischemic heart disease and other diseases of the circulatory system
CPT/HCPCS: 36415; 71045; 80053; 80061; 81001; 82962; 83880; 83970; 84100; 84443; 84484; 85025; 85027; 93005; 93010; 93306; 94660; 96374; 99285; J1815; J1940; J3490

== ENCOUNTER 2019-12-11 17:37 | Emergency (ER) | payer MEDICARE, BC ==
[2019-12-11] MEDS ORDERED: MIDAZOLAM 2 MG/2 ML INJ ONE ×5 (17:39→22:58)
[2019-12-11] MEDS ORDERED: AMIODARONE HCL INJ 150 MG/3 ML VIAL IV ONE (17:45)
[2019-12-11] MEDS ORDERED: NORMAL SALINE 1000 ML 1,000 ML IV ONE (17:51)
[2019-12-11 18:10] LABS: HEMATOCRIT 30.8 % (37.9-51.0); HEMOGLOBIN 10.2 g/dL (13.5-17.0); MEAN CORPUSCULAR HEMOGLOBIN 30.6 pg (27.0-33.4); MEAN CORPUSCULAR VOLUME 93 fl (80-97); PLATELET COUNT 132 10^3/uL (150-450); RED BLOOD COUNT 3.33 10^6/uL (4.35-5.55); RED CELL DISTRIBUTION WIDTH 19.1 % (11.5-14.0); WHITE BLOOD COUNT 10.2 10^3/uL (4.0-10.5)
[2019-12-11] MEDS ORDERED: MIDAZOLAM 2 MG/2 ML INJ IV ONE ×3 (18:11→19:14)
[2019-12-11] MEDS ORDERED: AMIODARONE HCL 150 MG in DEXTROSE 5%-WATER 100 ML IV ONE (18:11)
[2019-12-11 18:12] LABS: INTERNATIONAL RATION (INR) 0.99; PROTHROMBIN TIME 13.1 SEC (11.4-15.4)
[2019-12-11 18:13] LABS: PARTIAL THROMBOPLASTIN TIME 32.4 SEC (23.5-35.8)
--- NOTE | 2019-12-11 18:16 | RADIOLOGY REPORT (SQ) ---
EXAM DESCRIPTION: CHEST SINGLE VIEW IMAGES COMPLETED DATE/TIME: 12/11/2019 6:04 pm REASON FOR STUDY: V Tach COMPARISON: Chest radiographs 01/21/2018. EXAM PARAMETERS: NUMBER OF VIEWS: One view. TECHNIQUE: Single frontal radiographic view of the chest acquired. RADIATION DOSE: NA LIMITATIONS: None. FINDINGS: LUNGS AND PLEURA: No opacities, masses or pneumothorax. No pleural effusion. MEDIASTINUM AND HILAR STRUCTURES: No masses. Contour normal. HEART AND VASCULAR STRUCTURES: Heart normal in size. Normal vasculature. BONES: No acute findings. HARDWARE: Left chest wall dual chamber cardiac pacing device with grossly intact leads. OTHER: No other significant finding. IMPRESSION: No acute pulmonary findings. TECHNICAL DOCUMENTATION: JOB ID: [id number] 2010 [employer]- All Rights Reserved Reading location - IP/workstation name: [email or web address]
[2019-12-11 18:27] LABS: ABSOLUTE LYMPHOCYTES# (MANUAL) 1.9 10^3/uL (0.5-4.7); ABSOLUTE MONOCYTES # (MANUAL) 0.6 10^3/uL (0.1-1.4); BASOPHILS % (MANUAL) 0 % (0-2); EOSINOPHILS % (MANUAL) 2 % (0-6); LYMPHOCYTES % (MANUAL) 19 % (13-45); MONOCYTES % (MANUAL) 6 % (3-13); SEGMENTED NEUTROPHILS % (MAN) 73 % (42-78); TOTAL CELLS COUNTED 100
[2019-12-11 18:28] LABS: ALBUMIN 2.4 g/dL (3.5-5.0); ALKALINE PHOSPHATASE 98 U/L (38-126); ANION GAP 10 (5-19); ANISOCYTOSIS 2+; ASPARTATE AMINO TRANSFERASE 25 U/L (17-59); BILIRUBIN,DIRECT 0.1 mg/dL (0.0-0.4); BILIRUBIN,TOTAL 0.5 mg/dL (0.2-1.3); BLOOD UREA NITROGEN 61 mg/dL (7-20); CALCIUM 8.3 mg/dL (8.4-10.2); CARBON DIOXIDE 24 mmol/L (22-30); CHLORIDE 94 mmol/L (98-107); GLUCOSE 139 mg/dL (75-110); OVALOCYTES SLIGHT; PLATELET COMMENT DECREASED; POTASSIUM 3.7 mmol/L (3.6-5.0); TOTAL PROTEIN 4.8 g/dL (6.3-8.2)
[2019-12-11] MEDS ORDERED: LIDOCAINE 2% INJ-PF (100 MG/5 ML) SYRINGE ONE ×3 (18:39→22:56)
[2019-12-11] MEDS ORDERED: LIDOCAINE 2% INJ-PF (100 MG/5 ML) SYRINGE IV ONE (18:47)
[2019-12-11] MEDS ORDERED: HEPARIN SOD (PORCINE) 1,000 UNIT/ML 10 ML VIAL IV ONE (18:52)
[2019-12-11] MEDS ORDERED: HEPARIN SODIUM,PORCINE/D5W 25,000 UNIT/250 ML RTUINJ IV PRN (18:52)
[2019-12-11] MEDS ORDERED: ASPIRIN 81 MG TABLET, CHEWABLE PO ONE (18:54)
--- NOTE | 2019-12-11 19:05 | ER Document Report ---
ED General - General Chief Complaint: Arrhythmia Stated Complaint: WEAKNESS Time Seen by Provider: 12/11/19 17:49 Primary Care Provider: ALLEN MENDOZA DO [Primary Care Provider] - Follow up as needed TRAVEL OUTSIDE OF THE [place] IN LAST 30 DAYS: No - HPI Notes: Chief complaint: Weakness and palpitations HPI: 69-year-old male with complicated cardiac history including previous failed ablations and placement of AICD discharged from [facility] yesterday after prolonged hospitalization for recurrent episodes of V. tach now brought in by EMS with recurrence of weakness and palpitations. Patient denies chest pain, shortness of breath or vomiting. We note also that he is on home peritoneal dialysis. EMS gave amiodarone during transport with no resolution of his V. tach. They noted on the monitor that was in VT with a rate of about 130. His blood pressure was 80/60. I spoke with him on the radio and asked him to cardiovert but they had not done so at the time of arrival. Patient's clinical situation was unchanged on arrival here. - Related Data Allergies/Adverse Reactions: No Known Allergies Allergy (Unverified 07/11/17 06:00) Past Medical History - General Information source: Patient, Relative, [facility] Records - Social History Smoking Status: Former Smoker Family History: Hypertension Patient has homicidal ideation: No - Past Medical History Cardiac Medical History: Reports: Hx Atrial Fibrillation, Other - Recurrent VT. Failed ablation. AICD in situ. Endocrine Medical History: Reports: Hx Diabetes Mellitus Type 2 Renal/ Medical History: Reports: Hx Benign Prostatic Hyperplasia - TURP 08/09/17. Denies: Hx Peritoneal Dialysis Musculoskeletal Medical History: Reports Hx Arthritis Past Surgical History: Reports: Hx Internal Defibrillator, Hx PacemakerComment Only: Hx Vascular Surgery - TURP 07/10/17 Review of Systems - Review of Systems Notes: Constitutional: Negative for fever. HENT: Negative for sore throat. Eyes: Negative for visual changes. Cardiovascular: As per HPI. Respiratory: Negative for shortness of breath. Gastrointestinal: Negative for abdominal pain, vomiting or diarrhea. Genitourinary: Negative for dysuria. Musculoskeletal: Negative for back pain. Skin: Negative for rash. Neurological: Negative for headaches, weakness or numbness. 10 point ROS negative except as marked above and in HPI. Physical Exam - Vital signs Vitals: Temp 98.0 F 12/11/19 17:37 - Notes Notes: GENERAL: Slender male appearing acutely and chronically ill. Patient is alert and conversant. SKIN: Skin is cool pale slightly moist and mottled . HEAD: Normocephalic atraumatic. EYES: PERRLA. EOMI. Conjunctivae and sclerae clear. EARS: CANALS AND TMS CLEAR. NOSE: CLEAR. MOUTH: Moist mucosa. Dentures present. No stridor or edema. No drooling. NECK: Supple. No masses or thyromegaly. No adenopathy. Carotids 2+ without bruits. No JVD. BACK: Symmetrical without tenderness. CHEST: AICD/pacer present left upper anterior chest wall. Respirations unlabored. Breath sounds clear and symmetrical. Healed thoracotomy scar on the right. HEART: Tachycardic regular rhythm. No murmur gallop or rub. ABDOMEN: PD catheter in place left upper quadrant. Soft nontender without masses, organomegaly or rebound. Bowel sounds normally active. No bruits. GENITALIA: Deferred. EXTREMITIES: No edema. No calf tenderness. Cap refill less than 1.5 seconds. Dorsalis pedis and posterior tibial pulses 3+ and symmetrical. NEUROLOGICAL: GCS 15. Alert and oriented x3. Fluent speech. Cranial nerves II through XII intact. Sensorimotor and cerebellar normal. Normal tone. PSYCHIATRIC: Appropriate affect. Course - Re-evaluation Re-evalutation: 12/11/19 19:00 Poor peripheral perfusion and unstable V. tach on arrival. Patient was immediately sedated with Versed and cardioverted successfully back to a paced rhythm at about 80 bpm. His blood pressure came up to 125/60. Troponin is elevated 1.6. He is mildly hyponatremic around 128. His potassium and magnesium are normal. His creatinine is elevated around 9.2 consistent with known history of end-stage renal disease. Chest x-ray shows presence of pacemaker/defibrillator with no other acute changes present. I spoke with patient's by telephone. She wants to transfer back to [facility] which I think is totally appropriate. I have contacted the transfer center and I am waiting for callback from Dr. Stanislaw Judge with cardiology. 12/11/19 19:06 Patient went back into V. tach and dropped his pressure to around 70 systolic. We gave some IV lidocaine with no improvement. He was cardioverted a second time successfully. Patient went back into V. tach with a rate of 130 a third time. He was again cardioverted back to a paced rhythm at about 80. His pressures come up to 110/70. We are still awaiting transfer arrangements with [facility]. 12/11/19 22:41 Patient's lactate level is 1.2. His repeat troponin is down to 1.69. His redraw on his chemistries hemolyzed and has been redrawn again. I spoken again with the industrial workers at [facility] Dr. Beth. This man has been heparinized and given aspirin. I put him back on lidocaine now on a continuous IV infusion per [facility] recommendation. He has had yet another episode of sustained V. tach at a rate about 130. He dropped his blood pressure with this and felt weak. I initially re-bolused him with lidocaine and he did not show any response to this. He was therefore given 2 mg of Versed and we again performed a synchronized DC cardioversion at 100 J. He immediately converted back to a paced rhythm at a rate of 85. Blood pressure is currently 125/60. Patient feels better post cardioversion. I will update [facility] industrial workers as to present status. We are still awaiting bed assignment so he can be transferred. I have repeated a twelve-lead EKG and this is unchanged from his to earlier tracings. 12/11/19 22:52 I have again spoken with on-call industrial workers at [facility] Dr. Beth and she concurs with present plan of management. We are still awaiting assignment of ICU bed at [facility] to receive this patient and she recommends that we continue treating him with continuous infusion of amiodarone and lidocaine as we are currently doing. Chemistry profile has been repeated he remains hyponatremic with sodium of 126 and his potassium and CO2 are normal. He is receiving a normal saline IV infusion. - Vital Signs Vital signs: Temp Pulse Resp BP Pulse Ox 98.0 F 12 109/65 100 12/11/19 17:37 12/11/19 22:40 12/11/19 22:40 12/11/19 22:40 - Laboratory Result Diagrams: 12/11/19 17:33 12/11/19 21:35 Laboratory results interpreted by me: 12/11/19 12/11/19 12/11/19 17:33 17:33 21:35 RBC 3.33 L Hgb 10.2 L Hct 30.8 L RDW 19.1 H Plt Count 132 L Sodium 128.2 L 127.7 L Chloride 94 L 97 L BUN 61 H 62 H Creatinine 9.18 H 9.10 H Est GFR ( Amer) 7 L 7 L Est GFR (MDRD) Non-Af 6 L 6 L Glucose 139 H 152 H Calcium 8.3 L 7.9 L Total Protein 4.8 L Albumin 2.4 L - EKG Interpretation by Me Additional EKG results interpreted by me: 12/11/19 21:54 Twelve-lead EKG from 1752 hrs. was reviewed contemporaneously by me demonstrating a paced rhythm with a rate of 85. No old tracing for comparison. Indication for study: Status post cardioversion for ventricular tachycardia. Second EKG obtained at 1755 hrs. also reviewed by me again demonstrating a paced rhythm with an AV dual pacing pattern at a rate of 85. Indication for study: Status post cardioversion for ventricular tachycardia Procedures - Additional Procedures Cardioversion/Defib Additional Procedures: Cardioversion/defib - Patient has been cardioverted at 100 J on 3 successive episodes each time successfully. No complications noted and procedure was well-tolerated. He was lightly sedated with IV Versed for each of these procedures. Notes: 12/11/19 21:09 Patient had a recurrent episode of VT at a rate of about 130 and dropped his pressure to 60 systolic and appeared poorly perfused with mottled appearance and cool mildly diaphoretic skin. He was given IV Versed and again underwent synchronized DC cardioversion at 100 J with return to his paced rhythm at a rate of 80 and return of a systolic blood pressure of 110/60. I have subsequently been contacted by Dr. Beth the on-call industrial workers at [facility]. She is in agreement with our current management. She wants us to repeat a troponin and metabolic profile and check a lactate level. She recommends that we go ahead and put patient on a lidocaine drip which I have done. They are coordinating a bed and there CCU for him and will be taking him in transfer once bed is available. 12/11/19 22:44 Patient has required DC cardioversion at 100 J for a fourth time. Again procedure was well-tolerated and put patient back into his baseline paced rhythm. He was given in additional 2 mg of Versed IV for the procedure. This was well-tolerated no complications were noted. 12/11/19 23:04 Patient has required fifth episode of DC cardioversion for for sustained V. tach at a rate of 130 with hypotension and decreased perfusion and patient complaint of presyncope. He was cardioverted again at 100 J after administration of 1 mg of Versed IV. Procedure was well-tolerated and he converted back to a paced rhythm at a rate of 85. Critical Care Note - Critical Care Note Total time excluding time spent on procedures (mins): 240 - Synchronized DC c ardioversion x3. IV heparin. Aspirin rectally. Discharge - Discharge Clinical Impression: Ventricular tachycardia (paroxysmal), Acute non-STEMI, Hyponatremia, End stage renal disease Disposition: [facility] Referrals: ALLEN MENDOZA DO [Primary Care Provider] - Follow up as needed
[2019-12-11] MEDS ORDERED: HEPARIN SODIUM,PORCINE/D5W 25,000 UNIT/250 ML RTUINJ IV ONE (19:27)
[2019-12-11] MEDS ORDERED: LIDOCAINE HCL/D5W/PF 2,000 MG/250 ML RTUINJ IV ONE (21:14)
[2019-12-11] MEDS ORDERED: LIDOCAINE HCL/D5W/PF 2,000 MG/250 ML RTUINJ IV PRN (21:20)
[2019-12-11 22:28] LABS: ANION GAP 7 (5-19); BLOOD UREA NITROGEN 62 mg/dL (7-20); CALCIUM 7.9 mg/dL (8.4-10.2); CARBON DIOXIDE 24 mmol/L (22-30); CHLORIDE 97 mmol/L (98-107); GLUCOSE 152 mg/dL (75-110); POTASSIUM 3.7 mmol/L (3.6-5.0)
[2019-12-12 02:07] VITALS: BP 107/74
--- NOTE | 2019-12-12 11:13 | EKG REPORT ---
SEVERITY:- ABNORMAL ECG - A-V DUAL-PACED COMPLEXES W/ SOME INHIBITION : Confirmed by: Linnette Hinkle 12-Dec-2019 11:13:13
== END 2019-12-12 02:20 | disposition short-term general hospital (02) ==
LOC: ER 17:37
DX: I21.4 Non-ST elevation (NSTEMI) myocardial infarction (principal); I47.2 Ventricular tachycardia; E11.22 Type 2 diabetes mellitus with diabetic chronic kidney disease; N18.6 End stage renal disease; R53.1 Weakness; R00.2 Palpitations; I48.91 Unspecified atrial fibrillation; Z95.810 Presence of automatic (implantable) cardiac defibrillator
CPT/HCPCS: 93005; 96376; 99291; 99292; 96361; 96375; 96365; 96366; 36415; 83605; 83735; 85025; 85610; 85730; 80053; 84484; 71045; 93010; 92960; J2250; J1644 ×2; A9270; J2001 ×2; J7060; J7030; J0282

== ENCOUNTER 2020-04-10 07:53 | Emergency (ER) | payer MEDICARE, BC ==
[2020-04-10 08:40] LABS: ABSOLUTE BASOPHILS # (AUTO) 0.1 10^3/uL (0.0-0.2); ABSOLUTE LYMPHOCYTES (AUTO) 0.8 10^3/uL (0.5-4.7); ABSOLUTE MONOCYTES (AUTO) 0.9 10^3/uL (0.1-1.4); ABSOLUTE NEUT (AUTO) 5.9 10^3/uL (1.7-8.2); BASOPHILS % (AUTO) 1.2 % (0-2); EOSINOPHILS % (AUTO) 0.2 % (0-6); HEMOGLOBIN 10.9 g/dL (13.5-17.0); LYMPHOCYTES % (AUTO) 10.3 % (13-45); MEAN CORPUSCULAR VOLUME 91 fl (80-97); MONOCYTES % (AUTO) 12.1 % (3-13); PLATELET COUNT 364 10^3/uL (150-450); RED BLOOD COUNT 3.63 10^6/uL (4.35-5.55); RED CELL DISTRIBUTION WIDTH 16.8 % (11.5-14.0); SEGMENTED NEUTROPHILS % (AUTO) 76.2 % (42-78); TOTAL CELLS COUNTED % (AUTO) 100 %; WHITE BLOOD COUNT 7.7 10^3/uL (4.0-10.5)
--- NOTE | 2020-04-10 08:41 | RADIOLOGY REPORT (SQ) ---
EXAM DESCRIPTION: CHEST SINGLE VIEW IMAGES COMPLETED DATE/TIME: 04/10/2020 8:29 am REASON FOR STUDY: difficulty breathing COMPARISON: 12/11/2019 EXAM PARAMETERS: NUMBER OF VIEWS: One view. TECHNIQUE: Single frontal radiographic view of the chest acquired. RADIATION DOSE: NA LIMITATIONS: None. FINDINGS: LUNGS AND PLEURA: Subtle hazy right mid lung and basilar opacities. Blunting of the costo phrenic angles, likely scarring versus trace effusion. No pneumothorax. MEDIASTINUM AND HILAR STRUCTURES: Stable widening of the paratracheal stripe, likely vascular. HEART AND VASCULAR STRUCTURES: Normal heart size. Normal vasculature. BONES: No acute findings. HARDWARE: Left-sided cardiac pacer/ defibrillator with leads overlying right atrium and right ventric le. OTHER: No other significant finding. IMPRESSION: Subtle hazy right mid lung and basilar opacity, possibly infectious/inflammatory. No de nse consolidation. TECHNICAL DOCUMENTATION: JOB ID: [id number] 2010 [employer]- All Rights Reserved Reading location - IP/workstation name: [email or web address]
[2020-04-10 08:58] LABS: ALBUMIN 2.9 g/dL (3.5-5.0); ALKALINE PHOSPHATASE 106 U/L (38-126); ANION GAP 12 (5-19); ASPARTATE AMINO TRANSFERASE 29 U/L (17-59); BILIRUBIN,DIRECT 0.5 mg/dL (0.0-0.4); BILIRUBIN,TOTAL 0.7 mg/dL (0.2-1.3); BLOOD UREA NITROGEN 70 mg/dL (7-20); CALCIUM 8.6 mg/dL (8.4-10.2); CARBON DIOXIDE 27 mmol/L (22-30); CHLORIDE 93 mmol/L (98-107); GLUCOSE 100 mg/dL (75-110); POTASSIUM 5.5 mmol/L (3.6-5.0); TOTAL PROTEIN 5.3 g/dL (6.3-8.2)
[2020-04-10 09:16] VITALS: BP 99/76
--- NOTE | 2020-04-10 09:22 | ER Document Report ---
ED General - General Chief Complaint: Shortness Of Breath Stated Complaint: SHORTNESS OF BREATH Time Seen by Provider: 04/10/20 09:08 Primary Care Provider: ALLEN MENDOZA DO [Primary Care Provider] - Follow up as needed Mode of Arrival: Medic Information source: Patient TRAVEL OUTSIDE OF THE [place] IN LAST 30 DAYS: No - HPI Notes: Patient presents with shortness of breath. He states started suddenly about 3:30 in the morning. States is worse with exertion better with rest. Does radiate throughout his body. It is severe. He states that as he is sitting in the bed right now it is significantly better but still present. He states he feels like he usually feels when he needs to have dialysis performed. He states dialysis was last performed 3 days ago and today is his day to have dialysis. He states he has no concerns about an infectious process as he has had no fevers no cough no cold and no exposures to anyone with infection. He states he is had no vomiting or diarrhea. He denies any pain. - Related Data Allergies/Adverse Reactions: No Known Allergies Allergy (Verified 04/10/20 09:16) Past Medical History - General Information source: Patient - Social History Smoking Status: Former Smoker Frequency of alcohol use: None Drug Abuse: None Family History: Hypertension - Past Medical History Cardiac Medical History: Reports: Hx Atrial Fibrillation, Hx Congestive Heart Failure Pulmonary Medical History: Reports: Hx COPD Endocrine Medical History: Reports: Hx Diabetes Mellitus Type 1, Hx Diabetes Mellitus Type 2 Renal/ Medical History: Reports: Hx Benign Prostatic Hyperplasia - TURP 08/09/17, Hx End Stage Renal Disease. Denies: Hx Peritoneal Dialysis Musculoskeletal Medical History: Reports Hx Arthritis Past Surgical History: Reports: Hx Internal Defibrillator, Hx PacemakerComment Only: Hx Vascular Surgery - TURP 07/10/17 Review of Systems - Review of Systems Constitutional: denies: Chills, Fever Cardiovascular: denies: Chest pain, Palpitations Respiratory: Short of breath. denies: Cough -: Yes All other systems reviewed and negative Physical Exam - Vital signs Vitals: Resp Pulse Ox 21 H 99 04/10/20 07:57 04/10/20 07:57 Interpretation: Normal - General General appearance: Appears well, Alert - HEENT Head: Normocephalic, Atraumatic Eyes: Normal Pupils: PERRL - Respiratory Respiratory status: No respiratory distress Chest status: Nontender Breath sounds: Decreased air movement Chest palpation: Normal - Cardiovascular Rhythm: Regular Heart sounds: Normal auscultation Murmur: No - Abdominal Inspection: Normal Distension: No distension Bowel sounds: Normal Tenderness: Nontender Organomegaly: No organomegaly - Back Back: Normal, Nontender - Extremities General upper extremity: Normal inspection, Nontender, Normal color, Normal ROM, Normal temperature General lower extremity: Normal inspection, Nontender, Edema - 2+ bilaterally, Normal color, Normal ROM, Normal temperature. No: Marianna's sign - Neurological Neuro grossly intact: Yes Cognition: Normal Orientation: AAOx4 [place] Coma Scale Eye Opening: Spontaneous [place] Coma Scale Verbal: Oriented Edy Coma Scale Motor: Obeys Commands [place] Coma Scale Total: 15 Speech: Normal Motor strength normal: LUE, RUE, LLE, RLE Sensory: Normal - Psychological Associated symptoms: Normal affect, Normal mood - Skin Skin Temperature: Warm Skin Moisture: Dry Skin Color: Normal Course - Re-evaluation Re-evalutation: 04/10/20 09:20 Patient presents with shortness of breath that is now improved. His oxygen saturation is 100% on room air. He has a slightly increased respiratory rate however he states he feels that he is at baseline for where he usually is pre- dialysis. He does not appear toxic at this time. He does have a dialysis appointment this morning. We have confirmed this with the dialysis center and they state as soon as he has discharge he can come in and get dialysis. I think this is the best treatment for the patient. I do not appreciate any cardiac pathology as there are no ischemic changes on EKG and has had no chest pain. est x-ray is read as showing a possible subtle infectious process however he has no white count, no fever, and no infectious symptoms other than shortness of breath. I think symptoms are all mainly secondary to fluid overload and can be corrected with dialysis. I have informed the patient that if he is still short of breath after dialysis or begins to develop infectious symptoms he needs to be seen by medical provider. - Vital Signs Vital signs: Temp Pulse Resp BP Pulse Ox 98 F 23 H 99/76 L 96 04/10/20 09:10 04/10/20 09:01 04/10/20 09:01 04/10/20 09:12 - Laboratory Result Diagrams: 04/10/20 08:11 04/10/20 08:11 Laboratory results interpreted by me: 04/10/20 04/10/20 08:11 08:11 RBC 3.63 L Hgb 10.9 L Hct 33.0 L RDW 16.8 H Lymph % (Auto) 10.3 L Sodium 131.7 L Potassium 5.5 H Chloride 93 L BUN 70 H Creatinine 8.25 H Est GFR ( Amer) 8 L Est GFR (MDRD) Non-Af 6 L Direct Bilirubin 0.5 H Total Protein 5.3 L Albumin 2.9 L - Diagnostic Test Radiology reviewed: Image reviewed, Reports reviewed - EKG Interpretation by Me Rate: Normal - 100 Rhythm: Other - pqaced Firth/QRS: RBBB Discharge - Discharge Clinical Impression: CRF (chronic renal failure) Qualifiers: Chronic kidney disease stage: stage 5 Qualified Code(s): N18.5 - Chronic kidney disease, stage 5 Dyspnea Qualifiers: Dyspnea type: dyspnea on exertion Qualified Code(s): R06.00 - Dyspnea, un specified Condition: Stable Disposition: HOME, SELF-CARE Instructions: Dyspnea, Nonspecific ([facility]) Additional Instructions: Please go straight to dialysis. If you are still short of breath after dialysis or developed any infectious symptoms such as cough or fever please seek attention from a medical provider. Referrals: ALLEN MENDOZA DO [Primary Care Provider] - Follow up as needed
--- NOTE | 2020-04-10 12:43 | EKG REPORT ---
SEVERITY:- ABNORMAL ECG - ATRIAL-VENTRICULAR DUAL-PACED COMPLEXES RIGHT BUNDLE BRANCH BLOCK : Confirmed by: Sharla Nichols MD 10-Apr-2020 12:43:19
== END 2020-04-10 09:28 | disposition home or self-care (01) ==
LOC: ER 07:53
DX: N18.5 Chronic kidney disease, stage 5 (principal); R06.00 Dyspnea, unspecified; R06.02 Shortness of breath; Z87.891 Personal history of nicotine dependence; I50.9 Heart failure, unspecified; J44.9 Chronic obstructive pulmonary disease, unspecified; E11.9 Type 2 diabetes mellitus without complications
CPT/HCPCS: 36415; 71045; 80053; 85025; 93005; 93010; 99285